=== PATIENT | female | born 1950 | race Caucasian/White ===

== ENCOUNTER 2017-10-17 18:25 | Inpatient (IN) | payer MEDICARE ==
[2017-10-17 19:09] LABS: Mean Corpuscular HGB CONC 34.1 g/dL (32.0-36.0); Mean Corpuscular Hemoglobin 35.9 pg (27.0-31.0); Mean Platelet Volume 6.7 fL (7.4-10.4); Platelet Count 300 thou/uL (130-400); RBC Distribution Width 10.8 % (11.5-14.5); Red Blood Cell (RBC) Count 4.48 mill/uL (4.20-5.40); White Blood Cell (WBC) Count 8.2 thou/uL (4.8-10.8)
[2017-10-17 19:23] LABS: ALT (SGPT) 12 U/L (8-55); AST (SGOT) 20 U/L (5-34); Albumin 4.6 g/dL (3.4-4.8); Alkaline Phosphatase 84 U/L (40-150); Anion Gap 14 mmol/L (10-20); BUN (Urea Nitrogen) 13 mg/dL (9.8-20.1); Bilirubin, Total 0.5 mg/dL (0.2-1.2); CK (CPK) 106 U/L (29-168); Calc. Creatinine Clearance 0 mL/min (70-130); Carbon Dioxide 22 mmol/L (23-31); Chloride 107 mmol/L (98-107); Estimated GFR-MDRD 36; Globulin 3.1 g/dL (2.4-3.5); Glucose 96 mg/dL (80-115); Protein, Total 7.7 g/dL (6.0-8.3); Sodium 139 mmol/L (136-145)
[2017-10-17 19:25] LABS: CKMB 1.9 ng/mL (0-6.6); Troponin I Less than 0.010 ng/mL (< 0.028)
[2017-10-17 19:35] LABS: #Basophils 0.1 thou/uL (0.0-0.2); #Lymphocytes 2.8 thou/uL (1.20-3.40); #Monocytes 0.9 thou/uL (0.11-0.59); #Neutrophils 4.4 thou/uL (1.40-6.50); %Basophils 0.9 % (0.0-1.0); %Eosinophils 0.4 % (0.0-10.0); %Lymphocytes 33.8 % (21.0-51.0); %Monocytes 11.3 % (0.0-10.0); %Neutrophils 53.6 % (42.0-75.0); PLT Morphology Comment Appears Adequate; RBC Morphology Normal
--- NOTE | 2017-10-17 20:30 | RAD ---
PORTABLE AP CHEST X-RAY 10/17/17 HISTORY: Chest pain. COMPARISON: None available. FINDINGS: The cardiac silhouette and pulmonary vasculature are within normal limits. Minimal linear densities a re seen at each lung base which may be related to minimal atelectasis or scarring. Lungs are otherwis e clear. Vascular calcifications seen in the thoracic aorta. There is bilateral glenohumeral osteoart hropathy with degenerative changes in the spine. IMPRESSION: Mild bibasilar atelectasis versus scarring. There is otherwise no acute cardiopulmonary process. POS: [facility] CARL[facility]
[2017-10-17 21:07] LABS: Bilirubin Negative (Negative); Blood, Urine Negative (Negative); Clarity CLEAR (Clear); Glucose, Urine (Dipstick) Negative (Negative); Leukocyte Negative (Negative); Nitrite Negative (Negative); Protein, Urine (Dipstick) Negative (Neg-Trace); Urobilinogen 0.2 mg/dL (0.2-1.0)
[2017-10-17] MEDS ORDERED: Aspirin 325 MG TAB ONE (21:17)
[2017-10-17] MEDS ORDERED: Acetaminophen 1,000 MG in Premix Bag 1 BAG IVPB SCH (21:45)
--- NOTE | 2017-10-17 22:27 | CT ---
CT HEAD WITHOUT IV CONTRAST 10/17/17 HISTORY: Right arm, leg and face numbness. Chest pain. Nausea. COMPARISON: None available. FINDINGS: There is decreased attenuation seen in the periventricular white matter which is nonspecific but like ly reflective of moderate chronic small vessel ischemic changes. There is no evidence of an acute cor tical infarction, hemorrhage, mass effect, or midline shift. There are stents seen within the interna l carotid arteries at the level of the carotid siphons with coil masses seen adjacent to the region o f the sella likely related to prior aneurysm coiling. This does result in significant spray artifact limiting evaluation of the brain parenchyma in the region of the spray artifact. There is no acute cortical infarction, hemorrhage, mass effect, or midline shift. Ventricular system is normal in size, shape and position. The visualized paranasal sinuses and mastoid air cells are linh ar. Calvarial structures are intact. IMPRESSION: 1. No acute intracranial abnormality is demonstrated. 2. Chronic small vessel ischemic changes. 3. Findings related to prior aneurysm coiling as described above. POS: JUAN CARLOS
[2017-10-17 22:43] LABS: Troponin I 0.011 ng/mL (< 0.028)
[2017-10-17] MEDS ORDERED: Acetaminophen 325 MG TAB PO PRN (22:55)
[2017-10-17] MEDS ORDERED: Ondansetron HCl/PF 4 MG/2 ML Vial IVP PRN ×2 (22:55→23:58)
[2017-10-17] MEDS ORDERED: Ondansetron ODT 4 MG TAB SL PRN (22:55)
[2017-10-17 23:37] VITALS: BMI 20.5
[2017-10-17] MEDS ORDERED: Senokot 8.6 MG TAB PO PRN (23:58)
[2017-10-17] MEDS ORDERED: Mag-Al 1200 mg/1200 mg/30 ML UDCUP PO PRN (23:58)
[2017-10-17] MEDS ORDERED: Loperamide HCl 2 MG CAP PO PRN (23:58)
[2017-10-17] MEDS ORDERED: Milk Of Magnesia 30 ML UDCUP PO PRN (23:58)
[2017-10-17] MEDS ORDERED: Cyclobenzaprine 10 MG TAB PO PRN (23:59)
[2017-10-17] MEDS ORDERED: diphenhydrAMINE 25 MG CAP PO PRN (23:59)
[2017-10-17] MEDS ORDERED: Non-Formulary Item 1 EACH (Naproxen Sodium [Aleve] 220 MG) PO PRN (23:59)
[2017-10-17] MEDS ORDERED: Docusate 100 MG CAP PO PRN (23:59)
[2017-10-18 03:03] LABS: Troponin I 0.013 ng/mL (< 0.028)
--- NOTE | 2017-10-18 03:32 | HP ---
PRIMARY CARE PHYSICIAN: [facility] call admission. DATE OF SERVICE: 10/17/2017 REASON FOR ADMISSION: Stroke-like symptoms, chest pain. HISTORY OF PRESENT ILLNESS: A 67-year-old female who presented to emergency room with complaint of c hest pain. She was also having at the same time paraesthesia on right upper and lower extremity as w ell as on the right face. Patient denies any motor weakness. She was having substernal chest pain, which was like in intensity, pressure-like in nature, as well as 2/10 in intensity without any radiat ion, associated with nausea, but no vomiting. The patient does have chronic cough. She denies any h emoptysis. She denies any calf tenderness. She denies any pleuritic chest pain. She denies any low er extremity edema, orthopnea, or PND. She denies any palpitation, dizziness. She denies any dyspne a on exertion. She does report headache. In the emergency room, this patient had a CT brain, which was unremarkable. Chest x-ray was also unr emarkable. CT brain only showed chronic small vessel ischemic changes. The patient does have prior history of aneurysm coiling. Her chest x-ray showed bibasilar atelectasis versus scaring. Routine b lood test was unremarkable other than macrocytosis. REVIEW OF SYSTEMS: Please see my HPI for pertinent positive and negative. All other review of syste ms reviewed and negative except as mentioned in the HPI. Constitutional: Weight loss or gain, ability to conduct usual activities. Skin: Rash, itching. Eyes: Double vision, pain. ENT/Mouth: Nose bleeding, neck stiffness, pain, tenderness. Cardiovascular: Palpitations, dyspnea on exertion, orthopnea. Respiratory: Shortness of breath, wheezing, cough, hemoptysis, fever or night sweats. Gastrointestinal: Poor appetite, abdominal pain, heartburn, nausea, vomiting, constipation, or diarr hea. Genitourinary: Urgency, frequency, dysuria, nocturia. Musculoskeletal: Pain, swelling. Neurologic/Psychiatric: Anxiety, depression. Allergy/Immunologic: Skin rash, bleeding tendency. EMERGENCY ROOM COURSE: The patient is given 3 nitroglycerin and aspirin 324 mg at other emergency ro om. In our hospital, the patient was given Ofirmev 1 gram. ALLERGIES: AMOXICILLIN, NORCO, WELLBUTRIN. CURRENT HOME MEDICATIONS: Synthroid 75 mcg p.o. daily, ranitidine 150 mg twice daily, Lovaza 1 gram 4 times daily, lamotrigine 100 mg 2 tablets twice daily, Lipitor 20 mg p.o. daily, Antivert 25 mg as needed, Tylenol No. 3 one tablet as needed, Flexeril 10 mg t.i.d. p.r.n., trazodone 50 mg 2 tablets p .o. at bedtime p.r.n., losartan 300 mg p.o. daily. PAST MEDICAL HISTORY: COPD, hypothyroidism, dyslipidemia, bipolar disorder, chronic low back pain, m acular degeneration, left kidney cyst, history of skull fracture, osteoporosis. PAST SURGICAL HISTORY: x2, right tubal removal, right hand ganglion removal, sebaceous cys t removal from left foot bilateral meniscal repair, appendicectomy, oophorectomy of the right ovary, splenectomy, tonsillectomy. PAST PSYCHIATRIC HISTORY: Anxiety, depression, bipolar disorder. SOCIAL HISTORY: The patient is smoking about half pack per day. She drinks alcohol socially. She d enies any other illicit drug abuse. FAMILY HISTORY: Positive for diabetes among several family members. One of her brothers with lung c ancer, multiple myeloma in one family member. PHYSICAL EXAMINATION: VITAL SIGNS: On arrival, blood pressure 137/84, pulse 83, respiratory rate 22, temperature 98.5, sat uration 94% on room air, weight 54.4 kilograms. GENERAL: The patient is currently alert, awake, obvious acute distress. HEENT: Normocephalic, atraumatic. Eyes: Pupils round, reactive to light. Extraocular muscle intac t. ENT: Oropharynx within normal limits. Moist mucous membrane, no oral lesion, no pharyngeal erythema , no exudate. NECK: Supple, no JVD, no thyromegaly, no carotid bruit, no jugular venous distention. LUNGS: Clear to auscultation without any rhonchi or rales. CARDIAC: S1, S2 appears regular without any murmur. ABDOMEN: Soft and benign without any tenderness, no peritoneal sign, no guarding, no rigidity, no re bound, no suprapubic tenderness. BACK: Unremarkable, no CVA tenderness. EXTREMITIES: Upper extremity passive movement of all joints are normal. Lower extremities: No lucy a. Good peripheral pulsation. SKIN: No skin rash. HEMATOLOGIC: No lymphadenopathy. PSYCHIATRIC: Normal affect. NEUROLOGIC: The patient does have reduced sensation on right upper and lower extremity as well as ri ght face. Motor power is 5/5 in all four limbs. No cerebellar sign. Plantar bilateral flexor. PSYCHIATRIC: Normal affect. HEMATOLOGIC: No lymphadenopathy. SIGNIFICANT LABORATORY: 1. EKG showing sinus rhythm, first degree AV block, left atrial enlargement. 2. CT brain based on my review, no acute intracranial process. Chest x-ray based on my review, no a cute cardiopulmonary process. CBC: WBC 8.2, hemoglobin 16.0, MCV 105, platelet 300. BMP shows sodi um 139, potassium 4.0, chloride 107, carbon dioxide 22, BUN 13, creatinine 1.44, glucose 96, calcium 10.0. LFT: AST 20, ALT 12, alkaline phosphatase 84. CK 106. CK-MB 1.9, troponin I less than 0.010 . Albumin 4.6, protein 7.7. BNP 56.4. Urinalysis normal. ASSESSMENT/PLAN AND PLAN: 1. Acute right upper and lower extremity as well as facial paraesthesia, rule out cerebrovascular ac cident. 2. Chest pain, rule out acute coronary syndrome. 3. Macrocytosis without any anemia. 4. Chronic kidney disease stage 3. 5. Hypothyroidism. 6. Gastroesophageal reflux disease. 7. Hypertension. 8. Anxiety and depression. 9. Dyslipidemia. 10. Chronic low back pain. PLAN: 1. Admission to stroke floor, neuro check, MRI brain. If MRI brain is unremarkable, then we will co nsider cardiac workup as well. Do serial cardiac enzymes x3 after restart patient's home medication check folate and B12 level in the morning. 2. DVT prophylaxis with Lovenox 40 mg subcutaneously daily. 3. Gastrointestinal prophylaxis with the Pepcid 20 mg p.o. b.i.d. 4. Code status: The patient is FULL CODE. The patient does not have any surrogate decision maker. Disposition plan based on clinical course. We are expecting patient's stay in hospital more than 48 hours. Plan of care discussed with the patient in detail.
[2017-10-18] MEDS: Acetaminophen/Codeine 30-300mg Tablet PO PRN ×2 (05:55→14:18)
[2017-10-18] MEDS: Ibuprofen 200 MG TAB PO PRN ×2 (05:56→16:12)
[2017-10-18] MEDS: Levothyroxine Sodium 75 MCG TAB PO SCH (05:56)
[2017-10-18 07:20] LABS: #Basophils 0.1 thou/uL (0.0-0.2); #Lymphocytes 2.6 thou/uL (1.20-3.40); #Monocytes 0.8 thou/uL (0.11-0.59); #Neutrophils 3.7 thou/uL (1.40-6.50); %Basophils 1.4 % (0.0-1.0); %Eosinophils 0.3 % (0.0-10.0); %Lymphocytes 35.4 % (21.0-51.0); %Neutrophils 51.8 % (42.0-75.0); Hemoglobin 14.2 g/dL (12.0-16.0); Mean Corpuscular HGB CONC 33.9 g/dL (32.0-36.0); Mean Corpuscular Hemoglobin 35.4 pg (27.0-31.0); Mean Platelet Volume 6.9 fL (7.4-10.4); Platelet Count 277 thou/uL (130-400); RBC Distribution Width 10.6 % (11.5-14.5); Red Blood Cell (RBC) Count 4.02 mill/uL (4.20-5.40); White Blood Cell (WBC) Count 7.2 thou/uL (4.8-10.8)
[2017-10-18 07:42] LABS: Anion Gap 14 mmol/L (10-20); BUN (Urea Nitrogen) 17 mg/dL (9.8-20.1); Calc. Creatinine Clearance 31 mL/min (70-130); Calcium 9.4 mg/dL (7.8-10.44); Carbon Dioxide 24 mmol/L (23-31); Chloride 106 mmol/L (98-107); Estimated GFR-MDRD 36; Glucose 131 mg/dL (80-115); Potassium 3.8 mmol/L (3.5-5.1); Sodium 140 mmol/L (136-145)
[2017-10-18] MEDS: Enoxaparin Sodium 40 MG/0.4 ML SYRINGE SC SCH (08:15)
[2017-10-18] MEDS: Magnesium Oxide 250 MG TAB PO SCH (08:17)
[2017-10-18] MEDS: Vit A,C & E/Lutein/Minerals Tablet PO SCH ×2 (08:17→21:03)
[2017-10-18] MEDS: Ubidecarenone 50 MG CAP PO SCH (08:18)
[2017-10-18] MEDS: Folic Acid/Vit B Comp W-C PO SCH (08:19)
[2017-10-18] MEDS: Losartan 25 MG TAB PO SCH ×2 (08:20→21:03)
[2017-10-18] MEDS: Ferrous Sulfate 325 MG TAB PO SCH (08:22)
[2017-10-18] MEDS: Atorvastatin Calcium 20 MG TAB PO SCH (08:22)
[2017-10-18] MEDS: Famotidine 20 MG TAB PO SCH (08:23)
[2017-10-18] MEDS: lamoTRIgine 100 MG TAB PO SCH ×2 (08:24→21:04)
[2017-10-18 08:32] LABS: Vitamin B12 Greater than 2000 pg/mL (211-911)
[2017-10-18] MEDS ORDERED: Cyanocobalamin (Vitamin B-12) 1,000 MCG TAB PO SCH (09:00)
--- NOTE | 2017-10-18 12:23 | MRI ---
MRI BRAIN NONCONTRAST: DATE: 10/18/17. HISTORY: A 67-year-old female with acute right upper extremity, right lower extremity, and right facial hypest hesia (numbness). COMPARISON: No prior brain MRIs. There is a CT of the brain of 10/17/17. FINDINGS: There are non-ferromagnetic aneurysm coils in the region of the bilateral supraclinoid internal carot id arteries. They produce mild magnetic susceptibility artifact only on the gradient echo axial sequ ence. There is a small focus of encephalomalacia and gliosis in the right upper parietal cortex, inc luding involvement of the right paracentral lobule, near the vertex of the head, consistent with an o ld infarction. There are moderate chronic ischemic white matter changes throughout the cerebrum and shannan. No restricted diffusion to indicate acute infarction. No evidence of recent or remote intraax ial hemorrhage. No mass effect, midline shift, or extraaxial fluid collection. IMPRESSION: 1. No acute intracranial findings. 2. 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 3. Diffuse moderate chronic ischemic white matter changes of the cerebrum and shannan. 4. 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 SULMA Maynard POS: JUAN CARLOS
--- NOTE | 2017-10-18 15:37 | EKG ---
Test Reason : Blood Pressure : / mmHG Vent. Rate : 084 BPM Atrial Rate : 084 BPM P-R Int : 216 ms QRS Dur : 062 ms QT Int : 356 ms P-R-T Axes : 065 025 066 degrees QTc Int : 420 ms Sinus rhythm with 1st degree A-V block Left atrial enlargement Septal infarct , age undetermined Abnormal ECG Confirmed by DEYVI BEACH, IVELISSE Frank ([id number]), clinical editor WILLIAM HENLEY ([id number]) on 10/18/2017 3:37:45 PM Referred By: Confirmed By:IVELISSE CARNES MD
--- NOTE | 2017-10-18 17:49 | PDOC.PN ---
- Subjective Encounter Start Date: 10/18/17 Encounter Start Time: 15:00 Patient seen and examined. Still has Rt arm/leg paresthesias. No overnight events. No new focal deficits. - Objective Resuscitation Status: Resuscitation Status FULL:Full Resuscitation MAR Reviewed: Yes Vital Signs & Weight: Vital Signs (12 hours) Temp Pulse Resp BP Pulse Ox 10/18/17 16:00 98.0 F 74 14 115/58 L 92 L 10/18/17 12:00 98.8 F 70 14 117/55 L 96 10/18/17 08:24 97.6 F 70 16 93 L 10/18/17 08:00 97.6 F 70 16 119/68 93 L Weight Weight 115 lb 11.2 oz I&O: 10/17/17 10/18/17 10/19/17 06:59 06:59 06:59 Intake Total 480 Balance 480 Result Diagrams: 10/18/17 06:50 10/18/17 06:50 EKG Reviewed by me: Yes (Tele SR) Phys Exam - Physical Examination Constitutional: NAD HEENT: sclera anicteric Neck: no nodes, no JVD Respiratory: no wheezing, no rales, no rhonchi, clear to auscultation bilateral Cardiovascular: RRR, no rub no heaves/pulsations Gastrointestinal: soft, non-tender, no distention, positive bowel sounds Musculoskeletal: no edema Neurological: non-focal, moves all 4 limbs Rt forearm/leg decreased sensations Psychiatric: normal affect, A&O x 3 Skin: no rash Dx/Plan - Plan DVT proph w/lovenox, DVT proph w/SCDs IMPRESSION: 1. Suspected small vessel CVA causing Rt arm/leg paresthesias. MRI brain negative 2. Chest pain - resolved 3. Hypothyroidism 4. HLD 5. Chronic back pain 6. CKD 3 / HTN / Anxiety-Depression PLAN: * Cont Aspirin * DC Vit B12 due to elevated levels * Chest pain w/u as outpt * Echo * Carotid * Stroke team * Neuro consult * Cont neurochecks Review of Systems - Review of Systems Respiratory: negative: Cough, Dry, Shortness of Breath, Hemoptysis, SOB with Excertion, Pleuritic Pain, Sputum, Wheezing Cardiovascular: negative: chest pain, palpitations, orthopnea, paroxysmal nocturnal dyspnea, edema, light headedness Gastrointestinal: negative: Nausea, Vomiting, Abdominal Pain, Diarrhea, Constipation, Melena, Hematochezia - Medications/Allergies Allergies/Adverse Reactions: Allergies Allergy/AdvReac Type Severity Reaction Status Date / Time amoxicillin Allergy Verified 10/17/17 23:08 amoxicillin trihydrate Allergy Verified 10/17/17 23:08 [From Amoxil] ampicillin Allergy Verified 10/17/17 23:08 bupropion HCl Allergy Verified 10/17/17 23:08 [From Wellbutrin] hydrocodone bitartrate Allergy Verified 10/17/17 23:08 [From [place]] methocarbamol [From Robaxin] Allergy Verified 10/17/17 23:08 Aogfslg-Okn-Wst Reductase Allergy Verified 10/18/17 00:27 Inhibitor Medications: Current Medications Acetaminophen/Codeine Phosphate (Tylenol #3) 1 tab PO Q6H PRN PRN Reason: Pain Last Admin: 10/18/17 14:18 Dose: 1 tab Al Hydroxide/Mg Hydroxide (Maalox) 30 ml PO Q6H PRN PRN Reason: Heartburn or Indigestion Aspirin (Ecotrin) 325 mg PO DAILY [facility] Atorvastatin Calcium (Lipitor) 20 mg PO DAILY [facility] Last Admin: 10/18/17 08:22 Dose: 20 mg Calcium Carbonate (Caltrate) 600 mg PO [facility] Cholecalciferol (Vitamin D3) 2,000 units PO DAILY [facility] Last Admin: 10/18/17 08:20 Dose: 2,000 units Coenzyme Q10 (Coenzyme Q10) 200 mg PO DAILY [facility] Last Admin: 10/18/17 08:18 Dose: 200 mg Cyclobenzaprine HCl (Flexeril) 10 mg PO TIDPRN PRN PRN Reason: Muscle Spasm Last Admin: 10/18/17 16:13 Dose: 10 mg Diphenhydramine HCl (Benadryl) 50 mg PO HSPRN PRN PRN Reason: Allergies Docusate Sodium (Colace) 100 mg PO DAILYPRN PRN PRN Reason: Constipation Enoxaparin Sodium (Lovenox) 40 mg SC 0900 [facility] Last Admin: 10/18/17 08:15 Dose: 40 mg Famotidine (Pepcid) 20 mg PO DAILY [facility] Last Admin: 10/18/17 08:23 Dose: 20 mg Ferrous Sulfate (Feosol) 325 mg [facility] Last Admin: 10/18/17 08:22 Dose: 325 mg Ibuprofen (Motrin) 200 mg PO Q4H PRN PRN Reason: Fever>101/(Mi/Mod/Sev) Pain Last Admin: 10/18/17 16:12 Dose: 200 mg Lamotrigine (Lamictal) 200 mg PO BID [facility] Last Admin: 10/18/17 08:24 Dose: 200 mg Levothyroxine Sodium (Synthroid) 75 mcg PO 0600 [facility] Last Admin: 10/18/17 05:56 Dose: 75 mcg Loperamide HCl (Imodium) 2 mg PO PRN PRN PRN Reason: Diarrhea/Loose Stools Losartan Potassium (Cozaar) 50 mg PO BID [facility] Last Admin: 10/18/17 08:20 Dose: 50 mg Magnesium Hydroxide (Milk Of Magnesium) 30 ml PO DAILYPRN PRN PRN Reason: Constipation Magnesium Oxide (Magnesium Oxide) 500 mg PO DAILY [facility] Last Admin: 10/18/17 08:17 Dose: 500 mg Multivitamins/Minerals (Ocuvite With Lutein) 1 tab PO BID [facility] Last Admin: 10/18/17 08:17 Dose: 1 tab Ondansetron HCl (Zofran) 4 mg IVP Q6H PRN PRN Reason: Nausea/Vomiting Last Admin: 10/18/17 06:15 Dose: 4 mg Senna (Senokot) 2 tab PO HSPRN PRN PRN Reason: Constipation Trazodone HCl (Desyrel) 100 mg PO [facility] Vitamin B Complex/Vit C/Folic Acid (Nephro-Noah Tablet) 1 tab PO DAILY [facility] Last Admin: 10/18/17 08:19 Dose: 1 tab
--- NOTE | 2017-10-18 19:07 | ULT ---
CAROTID DOPPLER ULTRASOUND 10/18/17 HISTORY: CVA. FINDINGS: There is calcified atherosclerotic plaque seen within the bilateral carotid bulbs and proximal international banker al carotid arteries. Findings are greater on the left. There is moderate (50-69%) stenosis involving the left internal carotid artery based on a peak systol ic velocity of 155.4 cm/s. The left ICA/CCA ratio is 1.92. There is less than 50% maximal stenosis in the right internal carotid artery based on a peak systolic velocity of 87.3 cm/s and an ICA/CCA ratio of 1.1. Antegrade flow is demonstrated in the vertebral a rteries bilaterally. There is a hypoechoic structure seen adjacent to the carotid artery in the right aspect of the neck w hich demonstrates area of increased echogenicity centrally likely related to a lymph node. This lymp h node measures 1.5 cm x 1.1 cm x 0.8 cm. This lymph node is overall nonspecific IMPRESSION: 1. Moderate (50-69%) stenosis involving the left internal carotid artery. 2. No hemodynamically significant stenosis involving the right internal carotid artery. 3. Nonspecific mildly prominent lymph node right neck. POS: [facility]
[2017-10-18] MEDS: traZODone HCl 50 MG TAB PO SCH (21:03)
[2017-10-18] MEDS: Calcium Carbonate 600 MG TAB PO SCH (21:03)
[2017-10-19] MEDS: Levothyroxine Sodium 75 MCG TAB PO SCH (05:38)
[2017-10-19 06:03] LABS: Cardiac Risk 2.6 (Less than 4.5)
[2017-10-19] MEDS: Enoxaparin Sodium 40 MG/0.4 ML SYRINGE SC SCH (10:52)
[2017-10-19] MEDS: Famotidine 20 MG TAB PO SCH (10:53)
[2017-10-19] MEDS: Losartan 25 MG TAB PO SCH ×2 (10:53→21:48)
[2017-10-19] MEDS: lamoTRIgine 100 MG TAB PO SCH ×2 (10:54→21:47)
[2017-10-19] MEDS: Atorvastatin Calcium 20 MG TAB PO SCH (10:54)
[2017-10-19] MEDS: Aspirin 325 mg Enteric Coated Tablet PO SCH (10:54)
[2017-10-19] MEDS: Folic Acid/Vit B Comp W-C PO SCH (10:54)
[2017-10-19] MEDS: Vit A,C & E/Lutein/Minerals Tablet PO SCH ×2 (10:54→21:48)
[2017-10-19] MEDS: Ferrous Sulfate 325 MG TAB PO SCH (10:54)
[2017-10-19] MEDS: Magnesium Oxide 250 MG TAB PO SCH (10:54)
[2017-10-19] MEDS: Ubidecarenone 50 MG CAP PO SCH (10:55)
--- NOTE | 2017-10-19 14:31 | PDOC.PN ---
- Subjective Encounter Start Date: 10/19/17 Encounter Start Time: 14:29 Ms. Alanis says she continues to have numbness in her right arm, all the way to her finger tips. she also notes a patch of numbness on the right side of her face, as well as a patch on her right calf. She says the pain in her chest has abated. - Objective Resuscitation Status: Resuscitation Status FULL:Full Resuscitation MAR Reviewed: Yes Vital Signs & Weight: Vital Signs (12 hours) Temp Pulse Pulse Pulse Resp BP BP 10/19/17 12:00 97.8 F 72 16 10/19/17 09:50 73 82 125/77 139/77 10/19/17 08:00 98.1 F 73 16 10/19/17 04:15 10/19/17 04:00 97.9 F 61 16 BP Pulse Ox 10/19/17 12:00 137/73 96 10/19/17 09:50 10/19/17 08:00 116/61 94 L 10/19/17 04:15 96 10/19/17 04:00 115/55 L 96 Weight Weight 125 lb I&O: 10/18/17 10/19/17 10/20/17 06:59 06:59 06:59 Intake Total 480 360 Balance 480 360 Result Diagrams: 10/18/17 06:50 10/18/17 06:50 Phys Exam - Physical Examination HEENT: PERRLA Respiratory: no wheezing, no rales, no rhonchi, clear to auscultation bilateral Cardiovascular: RRR, no significant murmur, no rub Gastrointestinal: soft, non-tender, positive bowel sounds Musculoskeletal: no edema Dx/Plan (1) Right arm numbness Code(s): R20.2 - PARESTHESIA OF SKIN Status: Acute (2) Tobacco abuse Code(s): Z72.0 - TOBACCO USE Status: Acute (3) Chest pain Code(s): R07.9 - CHEST PAIN, UNSPECIFIED Status: Acute (4) CKD (chronic kidney disease), stage III Code(s): N18.3 - CHRONIC KIDNEY DISEASE, STAGE 3 (MODERATE) Status: Acute (5) Hypertension Code(s): I10 - ESSENTIAL (PRIMARY) HYPERTENSION Status: Acute - Plan * Right upper extremity numbness- MRI of the brain was negative for new infarct - ? cervical Disc disease- await Neurology input * Carotid doppler results were noted- she had an increase in the velocities in the left carotid indicating moderate stenosis, however it is less than 70%, and her renal function demonstrates a GFR of only 38% - will therefore hold off on obtaining a CTA of the carotids, unless this is recommended by Neurology * CKD- discussed with patient- will need to avoid nephrotoxic agents * Tobacco Abuse- discussed smoking cessation * Chest pain- likely non-cardiac- but will proceed with a Stress test.
--- NOTE | 2017-10-19 21:46 | CON ---
DATE OF CONSULTATION: 10/19/2017 REFERRING PROVIDER: Dr. Raymundo Will. REASON FOR CONSULTATION: Right-sided paresthesia. HISTORY OF PRESENT ILLNESS: Ms. Alanis is a pleasant 67-year-old female, who has been consu lted for evaluation of right-sided paresthesia. The patient reports that she woke up yesterday raz alvarado with numbness and tingling on the right side of the face, arm and leg. A few minutes later, she d eveloped a bifrontal headache which was dull to throbbing in quality, severe intensity with some christiano iness and blurred vision. She also developed chest pain, which prompted her to present to the [facility] Emergency Room. She states that her headache and chest pain are improved; however, she continue s to feel tingling sensation on the right face, arm and leg as well as fogginess. She denies chest p ain, palpitation, lightheadedness, dizziness, neck pain or back pain. PAST MEDICAL HISTORY: Significant for COPD, hypothyroidism, hyperlipidemia, bipolar disorder, chroni c low back pain, macular degeneration, left kidney cyst, history of skull fracture and osteoporosis. PAST SURGICAL HISTORY: Significant for x2, right tubal removal, right hand ganglion remova l, sebaceous cyst removal, appendectomy, oophorectomy, splenectomy, and tonsillectomy. PAST PSYCHIATRIC HISTORY: Significant for anxiety, depression, bipolar disorder. SOCIAL HISTORY: She smokes half a pack per day. She denies illicit drug use. She drinks alcohol on occasions. FAMILY HISTORY: Significant for diabetes and one of her brothers with a history of lung cancer. REVIEW OF SYSTEMS: As mentioned above in the HPI, otherwise negative. PHYSICAL EXAMINATION: VITAL SIGNS: Blood pressure of 137/73, pulse of 72, temperature of 97.8, respirations of 16, O2 sats of 96% on room air. GENERAL: Well-developed, well-nourished female, in no apparent distress. RESPIRATORY: Clear to auscultation bilaterally. CARDIOVASCULAR: Regular rate and rhythm. NEUROLOGICAL: Mental status: The patient is awake, alert, oriented x3. Speech and language: Fluen t speech. Cranial nerves: Pupils are 3 mm and reactive. Visual gaspar are intact. External muscle s are intact. No nystagmus is noted. Face is symmetric. Tongue and uvula are midline. Motor exam showed normal tone and bulk with a 5/5 strength in both upper and lower extremities. Sensory: Sensa tion is intact and symmetric. Deep tendon reflexes: 2+ reflexes in both upper and lower extremities . Babinski: Plantar responses flexion bilaterally. Coordination: Intact to [id number] and finger tapping bilaterally. LABORATORY DATA: Reviewed, which included CBC, CMP, urinalysis, which is significant for creatinine of 1.46, glucose of 131, total cholesterol of 101, LDL of 28, HDL of 39, triglycerides of 170, otherw ise unremarkable. IMAGING STUDIES: MRI brain without contrast was reviewed, which showed no acute intracranial abnorma lity. Carotid Doppler results were reviewed, which showed 50% to 69% stenosis of the left ICA. IMPRESSION: 1. Right-sided paresthesia. 2. Migraine headache. 3. Left internal carotid artery stenosis. ASSESSMENT AND PLAN: Ms. Alanis is a pleasant 67-year-old female presented with the right-s ided paresthesia followed by headache. Based on her description, she likely had a migraine with aura . I have reviewed her MRI brain, which showed no acute intracranial abnormality. Her carotid Dopple rs does show 50% to 69% stenosis of the left ICA. I would recommend [facility]. Unfortunately, she cannot have a CT angiogram due to her low GFR and elev ated creatinine level. I would recommend continuing her on aspirin 325 mg daily for secondary stroke prevention. If MRI angiogram is negative, she is okay to be discharged to home.
[2017-10-19] MEDS: Calcium Carbonate 600 MG TAB PO SCH (21:47)
[2017-10-19] MEDS: traZODone HCl 50 MG TAB PO SCH (21:48)
[2017-10-20] MEDS: Levothyroxine Sodium 75 MCG TAB PO SCH (02:53)
[2017-10-20] MEDS: Losartan 25 MG TAB PO SCH (08:18)
[2017-10-20] MEDS: Magnesium Oxide 250 MG TAB PO SCH (08:18)
[2017-10-20] MEDS: Folic Acid/Vit B Comp W-C PO SCH (08:18)
[2017-10-20] MEDS: Vit A,C & E/Lutein/Minerals Tablet PO SCH (08:18)
[2017-10-20] MEDS: lamoTRIgine 100 MG TAB PO SCH (08:19)
[2017-10-20] MEDS: Famotidine 20 MG TAB PO SCH (08:19)
[2017-10-20] MEDS: Aspirin 325 mg Enteric Coated Tablet PO SCH (08:19)
[2017-10-20] MEDS: Ubidecarenone 50 MG CAP PO SCH (08:19)
[2017-10-20] MEDS: Ferrous Sulfate 325 MG TAB PO SCH (08:19)
[2017-10-20] MEDS: Atorvastatin Calcium 20 MG TAB PO SCH (08:19)
[2017-10-20] MEDS: Enoxaparin Sodium 40 MG/0.4 ML SYRINGE SC SCH (08:24)
--- NOTE | 2017-10-20 13:55 | NM ---
MYOCARDIAL PERFUSION SCAN: HISTORY: Chest pain. TECHNIQUE: The patient was given 9 mCi of technetium sestamibi for rest imaging and 33 mCi for stress imaging. P atient was stressed with exercise according to Nash protocol. Left ventricle was imaged with SPECT i maging, with CT attenuation correction imagines obtained. FINDINGS: Normal activity throughout the left ventricle seen on stress and rest images. No evidence of reversib le ischemia. Wall motion is normal. Ejection fraction is recorded at 66%. IMPRESSION: No evidence of reversible ischemia. POS: [facility]AN CARLOS
--- NOTE | 2017-10-20 15:42 | MRI ---
MR ANGIOGRAM OF THE NECK: Date: 10/20/17 HISTORY: Abnormal carotid Doppler. COMPARISON: None. CORRELATION: Carotid ultrasound dated 10/18/17. TECHNIQUE: Axial 2D and 3D [id number] imaging performed. Maximum intensity projection images are submitted f or interpretation. FINDINGS: There is symmetric and appropriate flow-related signal in the visualized cervical carotid and vertebr al arteries. No significant stenosis. Note, the origin of the great vessels of the neck, as well as t he aortic arch, are not included on this exam. The images are somewhat limited due to stacking artifact from motion. IMPRESSION: Unremarkable MR angiogram of the neck. No evidence of moderate stenosis in the visualized left partner marketing intern al carotid artery. POS: [facility]
[2017-10-20 16:53] VITALS: BP 126/82; TEMP 98
--- NOTE | 2017-10-20 16:55 | PDOC.PN ---
- Subjective Encounter Start Date: 10/20/17 Encounter Start Time: 16:53 Ms. Alains was seen today in follow-up. She does not have any specific complaints today. - Objective Resuscitation Status: Resuscitation Status FULL:Full Resuscitation MAR Reviewed: Yes Vital Signs & Weight: Vital Signs (12 hours) Temp Pulse Pulse Pulse Resp BP BP 10/20/17 12:00 96.3 F L 79 16 10/20/17 08:00 98.2 F 70 16 10/20/17 07:52 70 69 121/67 132/66 10/20/17 05:27 BP Pulse Ox 10/20/17 12:00 150/86 H 95 10/20/17 08:00 121/67 99 10/20/17 07:52 10/20/17 05:27 92 L Weight Weight 125 lb I&O: 10/19/17 10/20/17 10/21/17 06:59 06:59 06:59 Intake Total 360 480 Balance 360 480 Result Diagrams: 10/18/17 06:50 10/18/17 06:50 Phys Exam - Physical Examination HEENT: PERRLA Respiratory: no wheezing, no rales, no rhonchi, clear to auscultation bilateral Cardiovascular: RRR, no significant murmur Gastrointestinal: soft, non-tender, positive bowel sounds Musculoskeletal: no edema Dx/Plan (1) Right arm numbness Code(s): R20.2 - PARESTHESIA OF SKIN Status: Acute (2) Tobacco abuse Code(s): Z72.0 - TOBACCO USE Status: Acute (3) Chest pain Code(s): R07.9 - CHEST PAIN, UNSPECIFIED Status: Acute (4) CKD (chronic kidney disease), stage III Code(s): N18.3 - CHRONIC KIDNEY DISEASE, STAGE 3 (MODERATE) Status: Acute (5) Hypertension Code(s): I10 - ESSENTIAL (PRIMARY) HYPERTENSION Status: Acute - Plan * MRA is negative, as well as the stress test. * She is stable for discharge Home * Possible Migraine with Aura
--- NOTE | 2017-10-21 05:53 | DIS ---
DATE OF ADMISSION: 10/17/2017 DATE OF DISCHARGE: 10/20/2017 PRIMARY CARE PHYSICIAN: Does not have primary care physician. DISCHARGE DISPOSITION: Home. PRIMARY DISCHARGE DIAGNOSES: 1. Probable migraine with aura. 2. Chronic obstructive pulmonary disease. 3. Hypothyroidism. 4. Bipolar disorder. 5. History of chronic low back pain. 6. History of macular degeneration. DISCHARGE MEDICATIONS: Include Tylenol No.3 q.6 hours as needed, atorvastatin 20 mg daily, vitamin B complex once daily, calcium carbonate 600 mg daily, vitamin D 2000 units daily, vitamin B12 of 5000 mcg daily, Flexeril 10 mg t.i.d. as needed, Benadryl 50 mg at bedtime, docusate sodium 100 mg as need ed, iron sulfate 65 mg daily, ibuprofen 600 mg q.4 hours as needed, Lamictal 200 mg twice a day, levo thyroxine 75 mcg daily, losartan 50 mg twice a daily, magnesium oxide 500 mg daily, Aleve 220 mg twic e a day as needed, potassium gluconate 600 mg daily, Ranitidine 150 mg twice a day, trazodone 100 mg at bedtime, CoQ10 200 mg daily, vitamin A, C, and E, zinc and copper 1 tablet twice a day. PROCEDURES DONE DURING THE ADMISSION: The patient had an echocardiogram, which showed an ejection fr action was 60-65%. There was normal right ventricular size and function and no significant valvular disease. The patient had bilateral carotid Dopplers in which there was some moderate stenosis involv ing the left internal carotid artery, but no hemodynamically significant stenosis in the right internal sales al carotid. The patient had an MRI of the brain showing no acute intracranial findings. There was s mall old cortical infarct in the right upper parietal lobe and some diffuse chronic ischemic white ma tter changes in the cerebrum in the shannan. There are aneurysm coils in the bilateral supraclinoid car otid siphons. The patient had a nuclear stress test, which was negative for any reversible ischemia and also an MR angiogram of the neck in which there was no evidence of any stenosis in eitber interna l carotid. CODE STATUS: FULL CODE. ALLERGIES: AMOXICILLIN, AMPICILLIN, BUPROPION, HYDROCODONE, METHOCARBAMOL, STATINS. CONSULTANTS DURING ADMISSION: The patient was seen by Dr. Marci Garrison with Neurology. HOSPITAL COURSE: Ms. Alanis is a pleasant 67-year-old female who presented to the emergency room with complaints of numbness and tingling on the right side of her face as well as her right upper extremi ty. Her symptoms persisted over 24 hours, so there was concern that she could have had a stroke desp ite a negative CT scan and MRI of the brain was done which was negative. She had carotid Dopplers wh ich suggested some moderate stenosis in the left internal carotid; however, this was not demonstrated on the MR angiogram. She was seen by Dr. Garrison who felt that her symptoms were most consistent with migraine with aura. She also had complaints of some chest pain and some pain radiating to the left s susan of her chest and shoulder. Nuclear stress test was done for this and this was negative for any r eversible ischemia. There are no findings which would call for a change in medications and therefore no medication changes were made. She was informed of the results of her test and subsequently disch arged home and to have close outpatient followup.
== END 2017-10-20 19:01 | disposition home or self-care (01) | DRG 103 ==
LOC: ERS 18:25 → 2SE 21:30
PROVIDERS: ADMIT Internal Medicine; ATTEND Internal Medicine
DX: G43.109 Migraine with aura, not intractable, without status migrainosus (principal); J44.9 Chronic obstructive pulmonary disease, unspecified; N18.3 Chronic kidney disease, stage 3 (moderate); I65.22 Occlusion and stenosis of left carotid artery; E03.9 Hypothyroidism, unspecified; E78.5 Hyperlipidemia, unspecified; F31.9 Bipolar disorder, unspecified; F41.9 Anxiety disorder, unspecified; M54.5 Low back pain; G89.29 Other chronic pain; M81.0 Age-related osteoporosis without current pathological fracture; F17.210 Nicotine dependence, cigarettes, uncomplicated; I12.9 Hypertensive chronic kidney disease with stage 1 through stage 4 chronic kidney disease, or unspecified chronic kidney disease
CPT/HCPCS: 36415; 70450; 70547; 70551; 71045; 78452; 80048; 80053; 80061; 81003; 82553; 82607; 82746; 83880; 84484; 85025; 93005; 93017; 93306; 93880; 96374; 99406; A9500; G8978-GP-CI; G8979-GP-CI; G8980-GP-CI; G8987-GO-CI; G8988-GO-CI; G8989-GO-CI; J0131; J1650; J2405

== ENCOUNTER 2018-06-04 08:45 | Outpatient (CLI) | payer MEDICARE ==
--- NOTE | 2018-06-04 11:19 | ULT ---
BILATERAL RENAL ULTRASOUND WITH RENAL DOPPLER: Date: 06/04/18 HISTORY: Chronic kidney disease. COMPARISON: None. TECHNIQUE: Rosenbaum scale, color flow, Doppler imaging with spectral waveform analysis performed of the kidneys. FINDINGS: Right renal cortical thinning is noted. No hydronephrosis. Right kidney measures 10.1 x 5.0 x 4.0 cm. There is nodularity of the left renal cortex. Masses could easily be obscured. No hydronephrosis. Lef t kidney measures 8.5 x 4.0 x 4.0 cm. Urinary bladder has a grossly normal mucosal appearance. Renal Doppler: Right renal artery measures 76 cm/sec. Left renal artery measures 126 cm/sec. Aorta is 66 cm/sec Right renal artery:aorta ratio is 1.15. Left renal artery:aorta ratio is 1.90. Right arcuate artery resistive index is 0.57. Left arcuate artery resistive index is 0.58. There is atherosclerosis in the visualized aorta. IMPRESSION: 1. Slightly asymmetric increased velocity of the left renal artery when compared to the contralatera l side. CT angiogram is recommended. 2. Nodularity of the left kidney, nonspecific. If there is concern for left renal mass, further eval uation with MRI or CT is recommended. POS: [facility]
== END 2018-06-04 08:46 | disposition home or self-care (01) ==
LOC: BICULT 08:45
PROVIDERS: ATTEND Internal Medicine Nephrology
DX: I13.10 Hypertensive heart and chronic kidney disease without heart failure, with stage 1 through stage 4 chronic kidney disease, or unspecified chronic kidney disease (principal); N18.4 Chronic kidney disease, stage 4 (severe); N12 Tubulo-interstitial nephritis, not specified as acute or chronic; R80.9 Proteinuria, unspecified; I25.10 Atherosclerotic heart disease of native coronary artery without angina pectoris; I73.9 Peripheral vascular disease, unspecified; E03.9 Hypothyroidism, unspecified; K21.9 Gastro-esophageal reflux disease without esophagitis; M19.90 Unspecified osteoarthritis, unspecified site; J44.9 Chronic obstructive pulmonary disease, unspecified; E78.5 Hyperlipidemia, unspecified; N28.89 Other specified disorders of kidney and ureter
CPT/HCPCS: 36415; 76700; 76770; 80061; 80069; 81003; 82306; 82570; 83520; 83970; 84156; 85027; 85652; 86038; 86200; 86225; 86256; 86376; 86800

== ENCOUNTER 2019-02-05 08:31 | Outpatient (CLI) | payer MEDICARE ==
--- NOTE | 2019-02-05 10:13 | MRI ---
Exam: Brain MRI with and without contrast HISTORY: Hemiplegia, affecting right side dominant. COMPARISON: 10/18/2017 Correlation: Noncontrast head CT 10/17/2017 FINDINGS: Gradient echo sequence: Metallic cyst be artifact due to coil masses near the left or right carotid t erminus. No evidence of hemorrhage. Calvarium: Appropriate T1 marrow signal intensity Midline brain parenchyma: Unremarkable Cerebrum:No parenchymal mass, mass effect or midline shift. Brain volume, age-appropriate. Remote ins ult in the right parietal lobe. Otherwise, cortical martini-white matter differentiation is preserved. Confluent T2 and FLAIR white matter hyperintensities, similar to the previous examination are felt to be due to chronic small vessel ischemic change. Ventricles: No evidence of hydrocephalus. Sinuses and mastoid air cells: Adequate aeration Diffusion: Central arterial flow is maintained. Absent restricted diffusion. Postcontrast images: No pathologic enhancement of the brain parenchyma. IMPRESSION: 1. No pathologic enhancement the brain parenchyma. 2. Absent restricted diffusion. No acute infarct. 3. Confluent white matter hyperintensities due to chronic small vessel ischemic change. 4. Redemonstration of aneurysm coils involving the left and right supraclinoid internal carotid arter ies.
[2019-02-05] MEDS ORDERED: Gadobenate Dimeglumine 529 MG/1 ML (20ML VIAL) ONE (10:37)
== END 2019-02-05 08:32 | disposition home or self-care (01) ==
LOC: BICMRI 08:31
PROVIDERS: ATTEND Psychiatry & Neurology Neurology
DX: G81.91 Hemiplegia, unspecified affecting right dominant side (principal); R90.82 White matter disease, unspecified; I72.0 Aneurysm of carotid artery
CPT/HCPCS: 70553; 82565; A9577

== ENCOUNTER 2019-02-12 12:40 | Outpatient (CLI) | payer MEDICARE ==
--- NOTE | 2019-02-12 13:36 | ULT ---
BILATERAL CAROTID DUPLEX ULTRASOUND: HISTORY: Right dominant hemiplegia TECHNIQUE: Grayscale, color-flow and spectral Doppler ultrasound imaging of the extracranial carotid artery syst ems was performed bilaterally. FINDINGS: There is plaque formation on both sides. The peak systolic velocity in the right ICA measures 82 cm/s with an end-diastolic velocity of 34 cm/ s and a systolic ratio of 1.02. The peak systolic velocity in the left ICA measures 155 cm/s with an end-diastolic velocity of 68 cm/s and a systolic ratio of 1.67. Flow in both vertebral arteries remains antegrade. IMPRESSION: Moderate (50-69%) stenosis of the left ICA.
== END 2019-02-12 12:41 | disposition home or self-care (01) ==
LOC: BICULT 12:40
PROVIDERS: ATTEND Psychiatry & Neurology Neurology
DX: G81.91 Hemiplegia, unspecified affecting right dominant side (principal); I65.22 Occlusion and stenosis of left carotid artery
CPT/HCPCS: 36415; 80053; 80061; 82306; 83036; 84443; 85025; 93880

== ENCOUNTER 2019-07-23 13:20 | Outpatient (CLI) | payer MEDICARE ==
--- NOTE | 2019-07-23 14:20 | BD ---
EXAM: DEXA bone density examination HISTORY: 69-year-old postmenopausal female for screening COMPARISON: None FINDINGS: L1--bone mineral density 0.783 g/sq cm; T score -1.9 L2--bone mineral density 0.774 g/sq cm; T score -2.3 L3--bone mineral density 0.792 g/sq cm; T score -2.7 L4--bone mineral density 0.884 g/sq cm; T score -1.6 Total L1-L4--bone mineral density 0.815 g/sq cm; T score -2.1 Left femoral neck--bone mineral density0.589; T score -2.3 Total proximal left femur--bone mineral density 0.680; T score -2.2 IMPRESSION: Osteopenia.
--- NOTE | 2019-07-23 14:40 | RAD ---
EXAM: Chest 2 views: HISTORY: Hypertension COMPARISON: None. FINDINGS: There is a normal-sized cardiomediastinal silhouette. Atherosclerotic calcifications are seen in the aorta. There is no evidence of consolidation, mass, or pleural effusion. The bones are unremarkable. IMPRESSION: No evidence of acute cardiopulmonary disease
--- NOTE | 2019-07-23 14:41 | RAD ---
EXAM: 3 views of the lumbosacral spine HISTORY: Low back pain for 30 years COMPARISON: None FINDINGS: 3 views of the lumbosacral spine shows normal height and alignment of the vertebral bodies and intervertebral discs without fracture or subluxation. Moderate to severe posterior facet arthrosis is seen in the lower lumbosacral spine. No significant osteophytes are seen surrounding the intervertebral discs. The sacroiliac joints are unremarkable. Atherosclerotic calcification are seen in the aorta. IMPRESSION: Moderate degenerative changes of the lumbar spine as above
--- NOTE | 2019-07-23 15:11 | RAD ---
CERVICAL SPINE 4 VIEWS: HISTORY: Scoliosis, headache. FINDINGS: Cervical vertebrae maintain normal height and alignment. There is mild loss of disk space at C6-7. Very mild degenerative change noted. Posterior alignment is preserved. Mild facet hypertrophy. IMPRESSION: Mild degenerative change. POS: [facility]
--- NOTE | 2019-08-20 15:40 | MMO ---
Bilateral MAMMO Bilat Screen [facility]DI+ALYCE. CLINICAL HISTORY: Patient is 69 years old and is seen for screening. The patient has the following family history of breast cancer: paternal grandmother, at age 60. The patient has no personal history of cancer. The patient has a history of left needle biopsy at age 29 - benign. VIEWS: The views performed were: bilateral craniocaudal with tomosynthesis and bilateral mediolateral oblique with tomosynthesis. FILMS COMPARED: The present examination has been compared to prior imaging studies performed at [facility] [place] on 03/08/2016, 03/21/2016 and 10/02/2016. This study has been interpreted with the assistance of computer-aided detection. MAMMOGRAM FINDINGS: There are scattered fibroglandular densities. There are benign appearing calcifications seen in both breasts. There are no suspicious masses, suspicious calcifications, or new areas of architectural distortion. IMPRESSION: THERE IS NO MAMMOGRAPHIC EVIDENCE OF MALIGNANCY. A ROUTINE FOLLOW-UP MAMMOGRAM IN 1 YEAR IS RECOMMENDED. THE RESULTS OF THIS EXAM WERE SENT TO THE PATIENT. ACR BI-RADS Category 2 - Benign finding MAMMOGRAPHY NOTE: 1. A negative mammogram report should not delay a biopsy if a dominant of clinically suspicious mass is present. 2. Approximately 10% to 15% of breast cancers are not detected by mammography. 3. Adenosis and dense breasts may obscure an underlying neoplasm. Reported by: VANESSA BOYD MD Electonically Signed: [id number]
== END 2019-07-23 13:21 | disposition home or self-care (01) ==
LOC: BICMAMMO 13:20
PROVIDERS: ATTEND Family Medicine
DX: Z12.31 Encounter for screening mammogram for malignant neoplasm of breast (principal); Z13.820 Encounter for screening for osteoporosis; M41.9 Scoliosis, unspecified; M47.816 Spondylosis without myelopathy or radiculopathy, lumbar region; M85.89 Other specified disorders of bone density and structure, multiple sites; Z80.3 Family history of malignant neoplasm of breast; M47.812 Spondylosis without myelopathy or radiculopathy, cervical region
CPT/HCPCS: 71046; 72040; 72100; 77063; 77067; 77080

== ENCOUNTER 2019-09-23 12:21 | Emergency (ER) | payer MEDICARE ==
[2019-09-23] MEDS ORDERED: Iopamidol-370 76% 500 ML 1 ML ONE (13:19)
[2019-09-23 13:28] LABS: #Basophils 0.1 thou/uL (0.0-0.2); #Lymphocytes 2.4 thou/uL (1.20-3.40); #Neutrophils 7.2 thou/uL (1.40-6.50); %Basophils 0.6 % (0.0-1.0); %Eosinophils 0.4 % (0.0-10.0); %Lymphocytes 22.7 % (21.0-51.0); %Neutrophils 67.2 % (42.0-75.0); Hemoglobin 14.3 g/dL (12.0-16.0); Mean Platelet Volume 7.1 fL (7.4-10.4); Platelet Count 344 thou/uL (130-400); Red Blood Cell (RBC) Count 4.22 mill/uL (4.20-5.40); White Blood Cell (WBC) Count 10.7 thou/uL (4.8-10.8)
[2019-09-23 13:50] LABS: ALT (SGPT) 7 U/L (8-55); AST (SGOT) 12 U/L (5-34); Albumin 4.1 g/dL (3.4-4.8); Alkaline Phosphatase 79 U/L (40-110); Anion Gap 12 mmol/L (10-20); BUN (Urea Nitrogen) 9 mg/dL (9.8-20.1); Bilirubin, Total 0.4 mg/dL (0.2-1.2); Calc. Creatinine Clearance 0 mL/min (70-130); Calcium 9.6 mg/dL (7.8-10.44); Carbon Dioxide 28 mmol/L (23-31); Chloride 105 mmol/L (98-107); Estimated GFR-MDRD 42; Glucose 87 mg/dL (80-115); Potassium 4.5 mmol/L (3.5-5.1); Protein, Total 7.1 g/dL (6.0-8.3); Sodium 140 mmol/L (136-145)
[2019-09-23 15:10] LABS: Bilirubin Negative (Negative); Blood, Urine Negative (Negative); Clarity Clear (Clear); Glucose, Urine (Dipstick) Normal (Negative); Leukocyte Negative Leu/uL (Negative); Nitrite Negative (Negative); Protein, Urine (Dipstick) Negative (Neg-Trace); Urobilinogen Normal mg/dL (Less than 2)
--- NOTE | 2019-09-23 15:20 | CT ---
CT abdomen and pelvis with IV contrast HISTORY: Left lower quadrant pain. COMPARISON: 09/09/2013. FINDINGS: Old left lower rib fractures. Normal spleen not visible. Multiple small splenules again dem onstrated within the upper abdomen similar in appearance to the previous exam. Small hyperdense stones within the dependent portion of the gallbladder lumen. Lobulation and cysts of the kidneys similar in appearance to the prior study. There is prominent calc ification throughout the arterial structures with likely significant stenosis of the iliac arteries. Prominent degenerative changes lower lumbar spine. No evidence of bowel obstruction. Extensive diverticula of the colon. Subtle stranding in the fat vicki und the upper to mid sigmoid colon with circumferential wall thickening. It is less prominent than on the 09/09/2013 study. No significant free fluid or free air. Nonspecific reactive appearing lymph nodes throughout the retroperitoneum. IMPRESSION: Prominent diverticulosis with inflamed appearance of the sigmoid colon. Short segment col itis likely related to diverticulitis. No evidence of complication. Cholelithiasis. Prominent atherosclerosis with likely stenosis of the right common iliac artery.
[2019-09-23] MEDS ORDERED: Ciprofloxacin 500 MG TAB ONE (15:41)
[2019-09-23] MEDS ORDERED: metroNIDAZOLE 500 MG/100 ML BAG ONE (15:42)
== END 2019-09-23 16:25 | disposition home or self-care (01) ==
LOC: ERS 12:21
DX: K57.32 Diverticulitis of large intestine without perforation or abscess without bleeding (principal); J44.9 Chronic obstructive pulmonary disease, unspecified; E78.00 Pure hypercholesterolemia, unspecified; E78.2 Mixed hyperlipidemia; M81.0 Age-related osteoporosis without current pathological fracture; Z86.73 Personal history of transient ischemic attack (TIA), and cerebral infarction without residual deficits; F31.9 Bipolar disorder, unspecified; K59.00 Constipation, unspecified
CPT/HCPCS: 36415; 74177; 80053; 81003; 83605; 83690; 85025; 96365; Q9967

== ENCOUNTER 2020-08-07 01:40 | Observation (INO) | payer MEDICARE ==
[2020-08-07 02:13] LABS: #Basophils 0.1 thou/uL (0.0-0.2); #Lymphocytes 3.2 thou/uL (1.20-3.40); #Monocytes 1.1 thou/uL (0.11-0.59); #Neutrophils 4.3 thou/uL (1.40-6.50); %Basophils 1.3 % (0.0-1.0); %Eosinophils 0.3 % (0.0-10.0); %Lymphocytes 36.2 % (21.0-51.0); %Monocytes 12.4 % (0.0-10.0); %Neutrophils 49.8 % (42.0-75.0); Hemoglobin 13.3 g/dL (12.0-16.0); Mean Corpuscular Hemoglobin 34.7 pg (27.0-31.0); Mean Platelet Volume 6.7 fL (7.4-10.4); Platelet Count 288 thou/uL (130-400); RBC Distribution Width 10.6 % (11.5-14.5); Red Blood Cell (RBC) Count 3.82 mill/uL (4.20-5.40); White Blood Cell (WBC) Count 8.7 thou/uL (4.8-10.8)
[2020-08-07 02:33] LABS: ALT (SGPT) 17 U/L (8-55); AST (SGOT) 18 U/L (5-34); Albumin 4.1 g/dL (3.4-4.8); Alkaline Phosphatase 98 U/L (40-110); Anion Gap 13 mmol/L (10-20); BUN (Urea Nitrogen) 29 mg/dL (9.8-20.1); Bilirubin, Total 0.2 mg/dL (0.2-1.2); Calc. Creatinine Clearance 0 mL/min (70-130); Calcium 8.8 mg/dL (7.8-10.44); Carbon Dioxide 26 mmol/L (23-31); Chloride 105 mmol/L (98-107); Globulin 2.6 g/dL (2.4-3.5); Glucose 112 mg/dL (80-115); Potassium 4.3 mmol/L (3.5-5.1); Protein, Total 6.7 g/dL (6.0-8.3); Sodium 140 mmol/L (136-145)
[2020-08-07 02:33] LABS: Bilirubin Negative (Negative); Blood, Urine Trace (Negative); Clarity Clear (Clear); Glucose, Urine (Dipstick) Normal (Negative); Ketone, Urine Negative (Negative); Leukocyte Negative Leu/uL (Negative); Nitrite Negative (Negative); Protein, Urine (Dipstick) Negative (Neg-Trace); RBC/HPF 0-3 HPF (0-3); Specific Gravity, Urine 1.009 (1.002-1.036); Squamous Epithelial 0-3 HPF (0-3); Urobilinogen Normal mg/dL (Less than 2); WBC/HPF 0-3 HPF (0-3)
[2020-08-07 02:52] LABS: Bacteria/HPF Rare-Few HPF (None Seen)
[2020-08-07] MEDS ORDERED: Aspirin Chewable 81 MG TAB ONE (03:39)
[2020-08-07] MEDS ORDERED: Ondansetron PF 4 MG/2 ML Vial IVP PRN (05:02)
[2020-08-07] MEDS ORDERED: Ondansetron ODT 4 MG TAB PO PRN (05:02)
[2020-08-07 05:18] VITALS: BMI 23.3
--- NOTE | 2020-08-07 05:24 | PDOC.HHP ---
Hospitalist HPI - History of Present Illness Right eye pain, blurry vision History of Present Illness: This is a 70-year-old female patient with a history of strokes, hypertension, hyperlipidemia and previous brain aneurysmal coiling who presents today with sudden onset unsteadiness in her gait and difficulty seen with her right eye with pain. Symptoms started about an hour prior to presentation when she noted unsteadiness of her gait and multiple images when she looked with both eyes which improved wi th closing of her right eye. She also noticed some pain in her right eye. She sat down for a few minutes to see whether this would resolve but did not. There was no associated focal weakness in her arms or legs or any sensory changes. No tinnitus or facial asymmetry noted. She denied any associated headache, fevers cough shortness of breath or palpitations. She notes chronic paresthesia in her feet bilaterally which has been chronic without any acute change recently. She activated EMS she was brought in for further evaluation. As presentation and CT scan of her head was negative for any intracranial process. CBC showed a mild macrocytosis otherwise generally within normal range. BMP showed creatinine of 1.44 at around baseline. Urine was generally bland. She was started on aspirin 325 mg. At the time of my assessment, his symptoms had almost completely disappeared without any blurring or diplopia noted. She also notes no ongoing pain in her right eye. Hospitalist ROS - Review of Systems Constitutional: denies: fever, chills, sweats, weakness Eyes: denies: pain, vision change, conjunctivae inflammation Respiratory: denies: cough, dry, shortness of breath, hemoptysis Cardiovascular: denies: chest pain, palpitations, orthopnea Gastrointestinal: denies: nausea, vomiting, abdominal pain Musculoskeletal: denies: neck pain, shoulder pain, arm pain Neurological: denies: weakness, numbness, incoordination, change in speech, seizures Other: Had initial unsteady gait. All other systems reviewed; all pertinent +/- noted in HPI/Subj - Medication Medications: Medications: Atorvastatin, B12, losartan, vitamin D Allergies: Amoxicillin, bupropion, statins, methocarbamol, [place] Hospitalist History - Past Medical History MEDICAL PHOTOGRAPHER: reports: CVA - Past Surgical History Past Surgical History: reports: Appendectomy, Tonsillectomy - Social History Smoking Status: Current every day smoker Alcohol: reports: Occassional Living Situation: Alone - Exam General Appearance: awake alert Eye: PERRL, anicteric sclera ENT: normocephalic atraumatic, no oropharyngeal lesions Heart: RRR, no murmur, no gallops, no rubs, normal peripheral pulses Respiratory: CTAB, no wheezes, no rales, no ronchi, normal chest expansion Gastrointestinal: soft, non-tender, non-distended, normal bowel sounds Extremities: no cyanosis, no clubbing, no edema Neurological: cranial nerve grossly intact, normal sensation to touch, no weakness Psychiatric: normal affect, normal behavior, A&O x 3 Hospitalist Results - Labs Result Diagrams: 08/08/20 06:40 08/08/20 06:40 Lab results: WBC 8.7 thou/uL (4.8-10.8) 08/07/20 02:06 Hgb 13.3 g/dL (12.0-16.0) 08/07/20 02:06 Hct 39.1 % (36.0-47.0) 08/07/20 02:06 MCV 102.0 fL (78.0-98.0) H 08/07/20 02:06 Plt Count 288 thou/uL (130-400) 08/07/20 02:06 Neutrophils % 49.8 % (42.0-75.0) 08/07/20 02:06 Sodium 140 mmol/L (136-145) 08/07/20 02:06 Potassium 4.3 mmol/L (3.5-5.1) 08/07/20 02:06 Chloride 105 mmol/L (98-107) 08/07/20 02:06 Carbon Dioxide 26 mmol/L (23-31) 08/07/20 02:06 BUN 29 mg/dL (9.8-20.1) H 08/07/20 02:06 Creatinine 1.44 mg/dL (0.6-1.1) H 08/07/20 02:06 Glucose 112 mg/dL (80-115) 08/07/20 02:06 Calcium 8.8 mg/dL (7.8-10.44) 08/07/20 02:06 Total Bilirubin 0.2 mg/dL (0.2-1.2) 08/07/20 02:06 AST 18 U/L (5-34) 08/07/20 02:06 ALT 17 U/L (8-55) 08/07/20 02:06 Alkaline Phosphatase 98 U/L (40-110) 08/07/20 02:06 Troponin I Less than 0.010 ng/mL (< 0.028) 08/07/20 02:06 Serum Total Protein 6.7 g/dL (6.0-8.3) 08/07/20 02:06 Albumin 4.1 g/dL (3.4-4.8) 08/07/20 02:06 Urine Ketones Negative mg/dL (Negative) 08/07/20 02:16 Urine Blood Trace (Negative) A 08/07/20 02:16 Urine Nitrite Negative (Negative) 08/07/20 02:16 Ur Leukocyte Esterase Negative Tin/uL (Negative) 08/07/20 02:16 Urine RBC 0-3 HPF (0-3) 08/07/20 02:16 Urine WBC 0-3 HPF (0-3) 08/07/20 02:16 Ur Squamous Epith Cells 0-3 HPF (0-3) 08/07/20 02:16 Urine Bacteria Rare-Few HPF (None Seen) 08/07/20 02:16 Hospitalist H&P A/P - Plan Plan: 70-year-old female patient with a history of stroke/TIA presenting with blurry vision involving her right eye and unsteady gait. Symptoms had resolved at the time of assessment however ongoing concerns for recurrent TIA/stroke. Stroke/TIA Involving right IV for steady gait. Symptoms resolved CT head negative Order MRI Echocardiogram with bubble study PT Started aspirin We will continue statin Neuro consult. CKD Monitor BMP VT prophylaxisHeparin CODE STATUSfull code
--- NOTE | 2020-08-07 07:39 | CT ---
PRELIMINARY REPORT/DIRECT RADIOLOGY/EMERGENCY AFTER HOURS PROCEDURE: EXAM: CT Head Without Intravenous Contrast. CLINICAL HISTORY: 70F with hx of htn, hyperlipidemia, ischemic stroke 16 mos ago with residual R foot drop, no anticoagulation, presenting for concern for symptoms that patient had with her previous stroke. TECHNIQUE: Axial computed tomography images of the head/brain without intravenous contrast. COMPARISON: None provided. FINDINGS: BRAIN: No acute intraparenchymal hemorrhage. No mass lesion. No CT evidence for acute territorial inf arct. No midline shift or extra-axial collection. Hypodensity of the white matter is nonspecific but likely represents chronic microvascular ischemic disease. Surgical material in the regions of the bilateral ICA terminus bilaterally, causing streak artifact at the skull base. VENTRICLES: No hydrocephalus. Volume loss. ORBITS: The globes are intact. SINUSES AND MASTOIDS: The paranasal sinuses and mastoid air cells are clear. SOFT TISSUES: No significant facial or scalp soft tissue swelling evident. No radiopaque foreign body is seen. BONES: No acute skull fracture. IMPRESSION: Chronic parenchymal changes. No acute intracranial abnormality. ELECTRONICALLY SIGNED BY: Brenda Vazquez MD Aug 07, 2020 3:37:19 AM ROOF SERVICE TECHNICIAN FINAL REPORT HEAD CT WITHOUT CONTRAST: DATE: 08/07/2020. COMPARISON: None. HISTORY: Headache, hyperlipidemia, prior stroke. TECHNIQUE: Axial CT imaging at 5 mm intervals from vertex through skull base without contrast. FINDINGS: The visualized paranasal sinuses and mastoid air cells are well-aerated. No displaced calvarial fract ure is seen. Metallic density in the supraclinoid region suggests bilateral aneurysm coiling with adjacent stent m aterial. No intracranial hemorrhage, midline shift, or mass effect. There are numerous areas of hypodensity involving the periventricular, deep, and subcortical white ma tter, evidence of small vessel disease. IMPRESSION: Chronic findings as above. No acute findings. Transcribed Date/Time: 08/07/2020 8:16 AM
--- NOTE | 2020-08-07 08:25 | ULT ---
US Carotid Doppler STANDARD History: TIA. Stroke Comparison: Carotid Doppler ultrasound 2019 Findings: Real-time grayscale, color and spectral analysis of the extracranial carotid and vertebral arteries was performed. Moderate atherosclerotic plaque both carotid bulbs which is calcific and soft. Antegrade flow both ve rtebral arteries. No elevated peak systolic velocities within the internal carotid arteries. Impression: No hemodynamically significant stenosis.
[2020-08-07] MEDS: Aspirin 81 mg Enteric Coated Tablet PO SCH (08:45)
[2020-08-07] MEDS: Heparin 5,000 UNITS/ML VIAL SC SCH ×3 (08:46→20:47)
--- NOTE | 2020-08-07 08:54 | PDOC.HOSPP ---
- Subjective Encounter Date: 08/07/20 Encounter Time: 08:30 Subjective: Patient seen today, denies new complaints, reports being cold after getting back from [place]. Denies dizziness, SOB, cough, abdominal pain. - Objective Vital Signs & Weight: Vital Signs (12 hours) Temp Pulse Resp BP Pulse Ox 08/07/20 07:49 97.9 F 75 16 92/52 L 93 L 08/07/20 05:00 97.8 F 69 16 112/58 L 93 L Weight Weight 58.014 kg Result Diagrams: 08/07/20 02:06 08/07/20 02:06 Hospitalist ROS - Review of Systems Constitutional: reports: other (reports feeling cold after getting back from a procedure) Eyes: denies: pain, conjunctivae inflammation, eyelid inflammation, redness, other ENT: denies: ear pain, ear discharge, nose pain, nose discharge, nose congestion, mouth pain, mouth swelling, throat pain, throat swelling, other Respiratory: denies: cough, dry, shortness of breath, hemoptysis, SOB with excertion, pleuritic pain, sputum, wheezing, other Cardiovascular: denies: chest pain, palpitations, orthopnea, paroxysmal noc. dyspnea, edema, light headedness, other Gastrointestinal: denies: nausea, vomiting, abdominal pain, diarrhea, constipation, melena, hematochezia, other Musculoskeletal: denies: neck pain, shoulder pain, arm pain, back pain, hand pain, leg pain, foot pain, other Skin: denies: rash, lesions, rommel, bruising, other Other: vision changes to right eye - Medication Medications: Active Medications Generic Name Dose Route Start Last Admin Trade Name Marta PRN Reason Stop Dose Admin Aspirin 81 mg 08/07/20 09:00 08/07/20 08:45 Aspirin 81 Mg Enteric Coated Tablet PO 81 mg DAILY MAGGIE Administration Heparin Sodium (Porcine) 5,000 units 08/07/20 09:00 08/07/20 08:46 Heparin 5,000 Units/Ml Vial SC Not Given TID MAGGIE - Exam General Appearance: awake alert Eye: anicteric sclera ENT: normocephalic atraumatic, moist mucosa Neck: supple, no JVD Heart: RRR Respiratory: CTAB, normal chest expansion Gastrointestinal: soft, normal bowel sounds Extremities: no edema Skin: normal turgor Neurological: no new deficit Psychiatric: oriented to person, oriented to place, flat affect Hosp A/P (1) Dizziness Code(s): R42 - DIZZINESS AND GIDDINESS Status: Acute (2) Blurred vision, right eye Code(s): H53.8 - OTHER VISUAL DISTURBANCES Status: Acute (3) CKD (chronic kidney disease), stage III Code(s): N18.3 - CHRONIC KIDNEY DISEASE, STAGE 3 (MODERATE) * DO NOT USE * Status: Chronic (4) Hypertension Code(s): I10 - ESSENTIAL (PRIMARY) HYPERTENSION Status: Chronic - Plan PT/OT, speech therapy, DVT proph w/heparin, DVT proph w/SCDs, GI proph Dizziness/rt eye vision changes/TIA #awaiting stroke team eval Awaiting neurology consult Awaiting MRI and Echo Carotid Doppler negative Continue ASA/Statin Further intervention per consultants DVT/PUD prevention
[2020-08-07] MEDS ORDERED: diphenhydrAMINE 25 MG CAP PO PRN (09:02)
--- NOTE | 2020-08-07 10:44 | MRI ---
MRI of thebrain: 08/07/2020 COMPARISON:None available HISTORY:Evaluate for acute infarction, headache, prior history of stroke with residual right sided fo ot drop TECHNIQUE: Multiplanar multisequence MR imaging of thebrain without contrast Findings:The diffusion weighted imaging demonstrates no evidence for acute infarction. The axial gradient echo imaging demonstrates no evidence for intracranial hemorrhage. There is extensive periventricular, deep, and subcortical white matter T2 and FLAIR hyperintensity, e vidence of small vessel disease. Arterial flow voids at the axial level of the skull base appear unremarkable on the T2-weighted imagi ng. The regional bone marrow signal intensity appears within normal limits. Imaged paranasal sinuses and mastoid air cells unremarkable. Minimal artifact associated with bilater al supraclinoid ICA aneurysm coiling. IMPRESSION:Prominent small vessel disease. No acute infarction.
[2020-08-07 14:57] LABS: SARS-CoV-2 MS2 Positive; SARS-CoV-2 N Gene Negative; SARS-CoV-2 S Gene Negative; SARS-CoV-2 by NAA Not Detected (NotDetected); SARS-CoV-2 orf1ab Negative
[2020-08-07] MEDS ORDERED: Sodium Chloride 0.9% 500 ML IV SCH (16:30)
[2020-08-07] MEDS ORDERED: Sodium Chloride 0.9% 1,000 ML IV SCH (16:45)
[2020-08-07] MEDS: Carvedilol 3.125 MG TAB PO SCH (17:25)
--- NOTE | 2020-08-07 20:29 | CON ---
DATE OF CONSULTATION: 08/07/2020 CONSULTING PHYSICIAN: Hospitalist Service. IMPRESSION: 1. 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 2. Past history of stroke. 3. History of aneurysm coiling. 4. Hypertension. 5. Hyperlipidemia. PLAN: 1. Continue aspirin and statin. 2. Office followup as scheduled. HISTORY OF PRESENT ILLNESS: Ms. Alanis is a 70-year-old woman who presented with an acute event. She was sitting in her house when she started to feel lightheaded. She went and sat down and laid her head over her arms. She started experiencing pain in her right eye. When she looked through the right eye, she had triple vision. She shut a right eye and she could see clearly out of the left. She noted some tingling in her right foot. Her symptoms went on for somewhere between 5 and 6 hours. They resolved spontaneously. She came into the ER and had a CT, which was unremarkable. Her carotid ultrasound shows no stenosis. She had a followup MRI of the brain, which showed some small vessel ischemic changes, but no acute ischemic injury. She denies having an event anything quite like this. She does have a past history of migraines. PAST MEDICAL HISTORY: As listed above. ALLERGIES: PENICILLIN, WELLBUTRIN, NORCO, AND ROBAXIN. SOCIAL HISTORY: Positive for tobacco use. FAMILY HISTORY: Noncontributory. REVIEW OF SYSTEMS: Ten-system review of systems is otherwise negative. PHYSICAL EXAMINATION: GENERAL: She is a thin, elderly lady, sitting up in bed, in no distress. VITAL SIGNS: Have been stable. She is afebrile. HEENT: Pupils are equal and reactive. Conjunctivae clear. Oropharynx clear. NECK: Supple. No lymphadenopathy. ABDOMEN: Soft and nontender. SKIN: Clear. EXTREMITIES: No cyanosis or edema. NEUROLOGIC: She is alert and appropriate. Speech is fluent and clear. She has no focal deficits. No abnormal movements were seen. SUMMARY: This is a 70-year-old woman who had orbital pain and vision distortion that is atypical for a stroke, but could be consistent with an orbital migraine. Her workup is otherwise negative. I would continue her prior treatment plan. I would be happy to follow up with her in the office schedule. Job ID: [id number]
[2020-08-07] MEDS: Acetaminophen 325 MG TAB PO PRN (20:41)
[2020-08-07] MEDS: lamoTRIgine 100 MG TAB PO SCH (20:46)
[2020-08-07] MEDS: Losartan 25 MG TAB PO SCH (20:47)
[2020-08-07] MEDS ORDERED: Carvedilol 3.125 MG TAB PO SCH (21:00)
[2020-08-07] MEDS ORDERED: Atorvastatin Calcium 40 MG TAB PO SCH (21:00)
[2020-08-07] MEDS ORDERED: Non-Formulary Item 1 EACH (Losartan Potassium [Losartan Potassium] 50 MG Tablet) PO SCH (21:00)
[2020-08-07] MEDS ORDERED: Azelastine 137 MCG/Spray 30 ML NS SCH (21:00)
[2020-08-07] MEDS ORDERED: Non-Formulary Item 1 EACH (Lamotrigine [Lamictal] 200 MG Tablet) PO SCH (21:00)
[2020-08-07] MEDS ORDERED: Calcium Carbonate 600 MG TAB PO SCH (21:00)
[2020-08-07] MEDS ORDERED: traZODone HCl 50 MG TAB PO SCH (21:00)
[2020-08-07] MEDS ORDERED: Non-Formulary Item 1 EACH (Trazodone [Trazodone] 100 MG Tab) PO SCH (21:00)
[2020-08-07] MEDS ORDERED: hydrALAZINE 10 MG TAB PO SCH ×2 (21:00)
[2020-08-08] MEDS ORDERED: Sodium Chloride 0.9% 250 ML IV SCH (04:45)
[2020-08-08] MEDS: Azelastine 137 MCG/Spray 30 ML NS SCH ×2 (06:12→11:03)
[2020-08-08] MEDS: Acetaminophen 325 MG TAB PO PRN ×2 (06:33→14:23)
[2020-08-08 07:24] LABS: #Basophils 0.1 thou/uL (0.0-0.2); #Lymphocytes 2.6 thou/uL (1.20-3.40); #Monocytes 1.1 thou/uL (0.11-0.59); %Basophils 0.8 % (0.0-1.0); %Eosinophils 0.3 % (0.0-10.0); %Lymphocytes 29.4 % (21.0-51.0); %Monocytes 12.6 % (0.0-10.0); %Neutrophils 56.9 % (42.0-75.0); Hemoglobin 12.4 g/dL (12.0-16.0); Mean Corpuscular HGB CONC 33.8 g/dL (32.0-36.0); Mean Corpuscular Hemoglobin 35.5 pg (27.0-31.0); Platelet Count 260 thou/uL (130-400); RBC Distribution Width 10.6 % (11.5-14.5); White Blood Cell (WBC) Count 8.9 thou/uL (4.8-10.8)
[2020-08-08 07:32] LABS: Anion Gap 11 mmol/L (10-20); BUN (Urea Nitrogen) 20 mg/dL (9.8-20.1); Calc. Creatinine Clearance 36 mL/min (70-130); Calcium 8.8 mg/dL (7.8-10.44); Carbon Dioxide 26 mmol/L (23-31); Cardiac Risk 3.2 (Less than 4.5); Chloride 107 mmol/L (98-107); Cholesterol 128 mg/dl (< 200 Desired); Glucose 84 mg/dL (80-115); HDL Cholesterol 40 mg/dL (>60 Neg Risk); LDL Cholesterol, Calculated 60 mg/dL; Potassium 4.2 mmol/L (3.5-5.1); Sodium 140 mmol/L (136-145); Triglycerides 139 mg/dL (Less than 150)
[2020-08-08] MEDS: Heparin 5,000 UNITS/ML VIAL SC SCH (07:50)
[2020-08-08] MEDS: Losartan 25 MG TAB PO SCH (07:50)
[2020-08-08] MEDS: Carvedilol 3.125 MG TAB PO SCH (07:51)
[2020-08-08] MEDS: lamoTRIgine 100 MG TAB PO SCH (07:51)
[2020-08-08] MEDS: Aspirin 81 mg Enteric Coated Tablet PO SCH (07:52)
[2020-08-08] MEDS ORDERED: Non-Formulary Item 1 EACH (Sertraline Hcl [Sertraline Hcl] 50 MG Tablet) PO SCH (09:00)
[2020-08-08] MEDS ORDERED: Non-Formulary Item 1 EACH (Ubidecarenone [Co Q-10] 200 MG Capsule) PO SCH (09:00)
[2020-08-08] MEDS ORDERED: Levothyroxine Sodium 75 MCG TAB PO SCH (09:00)
[2020-08-08] MEDS ORDERED: Ubidecarenone 50 MG CAP PO SCH (09:00)
[2020-08-08 12:00] VITALS: TEMP 98.1
[2020-08-08 13:07] VITALS: BP 123/66
--- NOTE | 2020-08-09 09:49 | DIS ---
DATE OF ADMISSION: 08/07/2020 DATE OF DISCHARGE: 08/08/2020 NEUROLOGIST: Dr. Greenberg. CONSULTATIONS: Dr. Greenberg. PROCEDURES: 1. The patient had an echocardiogram which showed an EF of 60% to 65%, normal size left atrium, left ventricular size is normal, impaired relaxation compatible with diastolic dysfunction, mild mitral regurgitation, mild to moderate tricuspid regurgitation. No thrombus noted in the cardiac chambers. The patient also had an MRI of the brain, which showed no acute infarction, prominent small-vessel disease. 2. The patient had a brain CT, which showed chronic findings but no acute findings. The patient also had a carotid Doppler study, which showed no evidence of hemodynamically significant stenosis. SUMMARY OF VISIT: Ms. Alanis is a very pleasant 70-year-old female with a history of strokes, hypertension, hyperlipidemia, and an aneurysm in the brain which was coiled, and she presents today with a sudden onset of unsteadiness in her gait and difficulty seeing with her right eye and a headache over that side. Symptoms started an hour before she presented to the emergency room for evaluation and reports that she did have some residual pain in that right eye. She denied any focal weakness in arms or legs or any sensory changes. She denied any upper respiratory symptoms, any fever or chills. She was evaluated for a possible TIA, was given an aspirin. CT scan as above and then admitted for further TIA, stroke workup. She was seen by Dr. Greenberg, whom she normally sees and he thought her symptoms were more consistent with an orbital migraine and that he would like the patient to see him in the office as a followup. Lab work remained stable. Creatinine this morning was 1.35, which is at baseline for the patient. Other lab work; she had a folic acid which was 13, fasting lipids which were all within normal limits, a cortisol level at 5 and TSH of 0.88. The patient is on levothyroxine. The patient reports that she had a headache yesterday and today and reports that she remembers after talking to Dr. Greenberg that she had these migraine headaches many years ago and they caused her blood pressure to go down. We were going to send her home yesterday, but her blood pressure dropped to 85/53 and rebounded with a little fluid resuscitation. She received fluids overnight, medication for her headache and today at noon her blood pressure returned to normal baseline for her at 137/60. The patient was seen this morning, reports other than the little bit of a headache, was feeling back to baseline and was ready to go home today. DISPOSITION: Home. DISPOSITION CONDITION: Stable. DISPOSITION INSTRUCTIONS: The patient instructed to follow up with her PCP within the next 7 to 10 days. Please note that we are discontinuing her losartan 50 mg p.o. b.i.d. for the time being. She should follow up with primary care doctor and take her blood pressure twice daily and may restart it if her blood pressure continues to normalize. ALLERGIES: AMOXICILLIN, AMPICILLIN, WELLBUTRIN, HYDROCODONE, ROBAXIN, STATINS. MEDICATIONS: Medications to be restarted; 1. Tylenol 650 mg p.o. q.4 hours p.r.n. 2. Aspirin 81 mg p.o. daily. 3. Atorvastatin 40 mg p.o. at bedtime. 4. Azelastine one spray nostril b.i.d. 5. Calcium carbonate 600 mg p.o. at bedtime. 6. Coreg 3.125 mg p.o. b.i.d. 7. Coenzyme Q 50 mg p.o. daily. 8. Diphenhydramine 25 mg p.o. p.r.n. 9. Lamictal 200 mg p.o. b.i.d. 10. Levothyroxine 75 mcg p.o. daily. 11. Losartan 50 mg p.o. b.i.d., which we will stop this one for now. 12. Sertraline 50 mg p.o. daily. 13. Trazodone 200 mg p.o. at bedtime. Attending physician today is Dr. Montes De Oca. The patient instructed to go to the emergency room if she has any worrisome or concerning symptoms. Job ID: [id number]
== END 2020-08-08 14:42 | disposition home or self-care (01) ==
LOC: ERS 01:40 → 2SE 04:12
PROVIDERS: ADMIT Student in an Organized Health Care Education/Training Program; ATTEND Student in an Organized Health Care Education/Training Program
DX: H53.8 Other visual disturbances (principal); H57.11 Ocular pain, right eye; R42 Dizziness and giddiness; R26.81 Unsteadiness on feet; I12.9 Hypertensive chronic kidney disease with stage 1 through stage 4 chronic kidney disease, or unspecified chronic kidney disease; N18.30 Chronic kidney disease, stage 3 unspecified; E78.5 Hyperlipidemia, unspecified; J44.9 Chronic obstructive pulmonary disease, unspecified; M81.0 Age-related osteoporosis without current pathological fracture; F31.9 Bipolar disorder, unspecified; F17.210 Nicotine dependence, cigarettes, uncomplicated; G43.909 Migraine, unspecified, not intractable, without status migrainosus; Z23 Encounter for immunization; Z86.73 Personal history of transient ischemic attack (TIA), and cerebral infarction without residual deficits; Z79.82 Long term (current) use of aspirin; Z79.899 Other long term (current) drug therapy; Z88.0 Allergy status to penicillin; Z88.8 Allergy status to other drugs, medicaments and biological substances; Z88.5 Allergy status to narcotic agent; Z20.828 Contact with and (suspected) exposure to other viral communicable diseases
CPT/HCPCS: 70450; 70551; 80048; 80053; 80061; 82533; 82746; 84443; 84484; 85025 ×2; 90732; 93005; 93306; 93880; 97116; 97139 ×4; 97535; 99285; G0009; U0003; 36415; 81003; 81015; 87635; 90471; G0378

== ENCOUNTER 2020-11-15 11:09 | Outpatient (CLI) | payer MEDICARE | END 2020-11-15 11:10 | disposition home or self-care (01) | LOC: BICCT 11:09 | PROVIDERS: ATTEND Family Medicine | DX: Z12.31 Encounter for screening mammogram for malignant neoplasm of breast (principal); Z80.3 Family history of malignant neoplasm of breast; F17.210 Nicotine dependence, cigarettes, uncomplicated | CPT/HCPCS: 71271; 77063; 77067 ==

== ENCOUNTER 2022-10-25 12:23 | Outpatient (CLI) | payer MEDICARE | END 2022-10-25 12:24 | disposition home or self-care (01) | LOC: BICCT 12:23 | PROVIDERS: ATTEND Family Medicine | DX: Z12.2 Encounter for screening for malignant neoplasm of respiratory organs (principal); Z12.31 Encounter for screening mammogram for malignant neoplasm of breast; R92.1 Mammographic calcification found on diagnostic imaging of breast; F17.210 Nicotine dependence, cigarettes, uncomplicated; Z91.89 Other specified personal risk factors, not elsewhere classified; Z80.3 Family history of malignant neoplasm of breast | CPT/HCPCS: 71271; 77063; 77067 ==

== ENCOUNTER 2023-05-02 14:25 | Outpatient (CLI) | payer MEDICARE ==
[2023-05-02] MEDS ORDERED: Iopamidol 370 76% 100 ML VIAL ONE (15:40)
== END 2023-05-02 14:26 | disposition home or self-care (01) ==
LOC: BICCT 14:25
PROVIDERS: ATTEND Family Medicine
DX: R91.1 Solitary pulmonary nodule (principal); J43.9 Emphysema, unspecified; I77.810 Thoracic aortic ectasia; N28.89 Other specified disorders of kidney and ureter
CPT/HCPCS: 71260; Q9967

== ENCOUNTER 2023-05-08 14:17 | Outpatient (CLI) | payer MEDICARE | END 2023-05-08 14:18 | disposition home or self-care (01) | LOC: BICCT 14:17 | PROVIDERS: ATTEND Family Medicine | DX: R93.89 Abnormal findings on diagnostic imaging of other specified body structures (principal) | CPT/HCPCS: 74170 ==

== ENCOUNTER 2023-06-05 09:02 | Outpatient (CLI) | payer MEDICARE | END 2023-06-05 09:03 | disposition home or self-care (01) | LOC: BICCT 09:02 | PROVIDERS: ATTEND Urology | DX: N28.1 Cyst of kidney, acquired (principal); N28.89 Other specified disorders of kidney and ureter; K80.20 Calculus of gallbladder without cholecystitis without obstruction; I70.0 Atherosclerosis of aorta; I70.1 Atherosclerosis of renal artery | CPT/HCPCS: 74175; 82565 ==

== ENCOUNTER 2023-09-30 10:00 | Inpatient (IN) | payer MEDICARE ==
[2023-10-17] MEDS ORDERED: CEFAZOLIN 1 GM VIAL ONE (07:04)
[2023-10-17] MEDS ORDERED: Sodium Chloride 0.9% 100 ML ONE (07:05)
[2023-10-17] MEDS ORDERED: Lidocaine 1.5% w/Epi 1:200K 30 ML VIAL (Epid Use) ONE (07:24)
[2023-10-17] MEDS ORDERED: fentaNYL 50 mcg/mL 1 mL Vial ONE (07:33)
[2023-10-17] MEDS ORDERED: fentaNYL PF 100 MCG/2 ML SYRINGE ONE (07:33)
[2023-10-17] MEDS ORDERED: PROPOFOL 20 ML ONE (07:34)
[2023-10-17] MEDS ORDERED: ePHEDrine Sulfate 50 MG/10 ML VIAL ONE ×2 (07:35→09:10)
[2023-10-17] MEDS ORDERED: Phenylephrine 10 MG/ML VIAL ONE (07:35)
[2023-10-17] MEDS ORDERED: Dexamethasone 20 MG/5 ML VIAL ONE (07:56)
[2023-10-17] MEDS ORDERED: Rocuronium Bromide 10 MG/ML (10ML VIAL) ONE (07:56)
[2023-10-17] MEDS ORDERED: Ropivacaine 0.2% HCl/PF 20 ML ONE (08:24)
[2023-10-17] MEDS ORDERED: Naloxone HCl 0.4 mg/ml Vial IVP PRN (09:00)
[2023-10-17] MEDS ORDERED: Moisturizing Cream (Eucerin) 113 GM JAR TOP PRN (09:00)
[2023-10-17] MEDS ORDERED: Promethazine HCl 25 MG/ML VIAL IM PRN (09:00)
[2023-10-17] MEDS ORDERED: diphenhydrAMINE 50 MG/ML VIAL IM PRN (09:00)
[2023-10-17] MEDS ORDERED: Naloxone HCl 0.4 mg/ml Vial IV PRN (09:00)
[2023-10-17] MEDS ORDERED: Promethazine HCl 25 MG SUPP PR PRN (09:00)
[2023-10-17] MEDS ORDERED: Ondansetron PF 4 MG/2 ML Vial IVP PRN (09:00)
[2023-10-17] MEDS ORDERED: Bupivacaine 0.25% 10 ML VIAL EPIDURAL PRN (09:00)
[2023-10-17] MEDS ORDERED: Zolpidem Tartrate 5 MG TAB PO PRN (09:00)
[2023-10-17] MEDS ORDERED: Bacitracin Zinc Ointment 30 gm TUBE ONE (09:21)
[2023-10-17] MEDS ORDERED: Albumin 25% 100 ML ONE (09:21)
[2023-10-17] MEDS ORDERED: NEOSTIGMINE 3 MG/3 ML SYR 3 MG/3 ML SYRINGE ONE (10:39)
[2023-10-17] MEDS ORDERED: Glycopyrrolate 0.2 MG/ML 5 ML SYRINGE ONE (10:39)
[2023-10-17] MEDS ORDERED: hydrALAZINE 20 MG/ML VIAL SLOW IVP PRN (11:44)
[2023-10-17] MEDS ORDERED: Bisacodyl 10 MG SUPP PR PRN (11:44)
[2023-10-17] MEDS ORDERED: Albumin 5% 250 ML ONE (12:04)
[2023-10-17] MEDS: diphenhydrAMINE 50 MG/ML VIAL IVP PRN (13:00)
[2023-10-17] MEDS: Sodium Chloride 0.9% 1,000 ML IV SCH (13:22)
[2023-10-17] MEDS: Acetaminophen 325 MG TAB PO SCH (13:23)
[2023-10-17] MEDS: CEFAZOLIN 1 GM in Sodium Chloride 0.9% 100 ML IVPB SCH (13:23)
[2023-10-17 13:39] VITALS: BMI 23.6
[2023-10-17] MEDS ORDERED: Ipratropium/Albuterol 3 ML NEB NEB PRN (15:32)
[2023-10-17] MEDS ORDERED: Electrolyte Replacement Protocol 1 EACH FS SCH (15:45)
[2023-10-17] MEDS ORDERED: Electrolyte Replacement Protocol FS PRN (16:00)
[2023-10-17 16:08] LABS: #Monocytes 0.8 thou/uL (0.11-0.59); #Neutrophils 12.4 thou/uL (1.40-6.50); %Basophils 0.3 % (0.0-1.0); %Lymphocytes 5.2 % (21.0-51.0); %Monocytes 5.9 % (0.0-10.0); %Neutrophils 88.3 % (42.0-75.0); Hematocrit 37.9 % (36.0-47.0); Hemoglobin 12.6 g/dL (12.0-16.0); Mean Corpuscular HGB CONC 33.2 g/dL (32.0-36.0); Mean Corpuscular Hemoglobin 35.5 pg (27.0-31.0); Mean Corpuscular Volume 106.8 fl (78.0-98.0); Platelet Count 237 10x3/uL (130-400); RBC Distribution Width 14.3 % (11.5-14.5); Red Blood Cell (RBC) Count 3.55 mill/uL (4.20-5.40)
[2023-10-17 16:44] LABS: ALT (SGPT) 12 U/L (8-55); AST (SGOT) 23 U/L (5-34); Albumin 3.8 g/dL (3.4-4.8); Alkaline Phosphatase 66 U/L (40-110); Anion Gap 14 mmol/L (10-20); BUN (Urea Nitrogen) 19 mg/dL (9.8-20.1); Bilirubin, Total 0.3 mg/dL (0.2-1.2); Calc. Creatinine Clearance 39 mL/min (70-130); Calcium 7.8 mg/dL (7.8-10.44); Carbon Dioxide 21 mmol/L (23-31); Chloride 110 mmol/L (98-107); Estimated GFR 48; Globulin 2.1 g/dL (2.4-3.5); Glucose 115 mg/dL (83-110); Potassium 4.6 mmol/L (3.5-5.1); Protein, Total 5.9 g/dL (5.8-8.1); Sodium 140 mmol/L (136-145)
[2023-10-17] MEDS: Cyclobenzaprine 10 MG TAB PO PRN (16:45)
[2023-10-17] MEDS: Nicotine 14 MG PATCH TD SCH (19:50)
[2023-10-17] MEDS ORDERED: Non-Formulary Item 1 EACH (Lamotrigine [Lamictal] 200 MG Tablet) PO SCH (21:00)
[2023-10-17] MEDS ORDERED: Non-Formulary Item 1 EACH (Trazodone [Trazodone] 100 MG Tab) PO SCH (21:00)
[2023-10-17] MEDS ORDERED: Carvedilol 3.125 MG TAB PO SCH (21:00)
[2023-10-17] MEDS: Docusate 100 MG CAP PO SCH (21:06)
[2023-10-17] MEDS: Carvedilol 3.125 MG TAB PO SCH (21:06)
[2023-10-17] MEDS: lamoTRIgine 100 MG TAB PO SCH (21:06)
[2023-10-17] MEDS: Atorvastatin Calcium 20 MG TAB PO SCH (21:06)
[2023-10-17] MEDS: diphenhydrAMINE 25 MG CAP PO PRN (21:06)
[2023-10-17] MEDS: traZODone HCl 50 MG TAB PO SCH (21:06)
[2023-10-18] MEDS: Calcium Carbonate 500 MG ChewTAB PO PRN (00:06)
[2023-10-18 04:20] LABS: #Basophils 0.1 thou/uL (0.0-0.2); #Monocytes 1.6 thou/uL (0.11-0.59); #Neutrophils 12.3 thou/uL (1.40-6.50); %Basophils 0.3 % (0.0-1.0); %Lymphocytes 11.9 % (21.0-51.0); %Monocytes 10.2 % (0.0-10.0); %Neutrophils 77.2 % (42.0-75.0); Hematocrit 36.4 % (36.0-47.0); Hemoglobin 11.9 g/dL (12.0-16.0); Mean Corpuscular HGB CONC 32.7 g/dL (32.0-36.0); Mean Corpuscular Hemoglobin 34.2 pg (27.0-31.0); Mean Corpuscular Volume 104.6 fl (78.0-98.0); Mean Platelet Volume 9.1 fL (7.4-10.4); Platelet Count 236 10x3/uL (130-400); RBC Distribution Width 14.3 % (11.5-14.5); Red Blood Cell (RBC) Count 3.48 mill/uL (4.20-5.40); White Blood Cell (WBC) Count 15.9 10x3/uL (4.8-10.8)
[2023-10-18 04:43] LABS: Anion Gap 12 mmol/L (10-20); BUN (Urea Nitrogen) 19 mg/dL (9.8-20.1); Calc. Creatinine Clearance 40 mL/min (70-130); Carbon Dioxide 24 mmol/L (23-31); Chloride 108 mmol/L (98-107); Estimated GFR 50; Glucose 123 mg/dL (83-110); Potassium 4.5 mmol/L (3.5-5.1); Sodium 139 mmol/L (136-145)
[2023-10-18] MEDS: Levothyroxine Sodium 75 MCG TAB PO SCH (05:09)
[2023-10-18] MEDS ORDERED: Non-Formulary Item 1 EACH (Sertraline Hcl [Sertraline Hcl] 50 MG Tablet) PO SCH (09:00)
[2023-10-18] MEDS ORDERED: Levothyroxine Sodium 75 MCG TAB PO SCH (09:00)
[2023-10-18] MEDS: Sertraline 25 MG TAB PO SCH (09:17)
[2023-10-18] MEDS: FENTANYL 500 MCG/10 ML VIAL 500 MCG, Bupivacaine 0.75% 10 ML in Sodium Chloride 0.9% 80 ML EPIDURAL SCH (14:29)
[2023-10-19 05:34] LABS: #Basophils 0.1 thou/uL (0.0-0.2); #Monocytes 1.5 thou/uL (0.11-0.59); #Neutrophils 9.1 thou/uL (1.40-6.50); %Basophils 0.5 % (0.0-1.0); %Lymphocytes 14.3 % (21.0-51.0); %Monocytes 11.8 % (0.0-10.0); Hematocrit 33.8 % (36.0-47.0); Hemoglobin 11.3 g/dL (12.0-16.0); Mean Corpuscular HGB CONC 33.4 g/dL (32.0-36.0); Mean Corpuscular Volume 104.6 fl (78.0-98.0); Mean Platelet Volume 9.1 fL (7.4-10.4); Platelet Count 218 10x3/uL (130-400); RBC Distribution Width 14.3 % (11.5-14.5); Red Blood Cell (RBC) Count 3.23 mill/uL (4.20-5.40); White Blood Cell (WBC) Count 12.4 10x3/uL (4.8-10.8)
[2023-10-19 06:07] LABS: Anion Gap 11 mmol/L (10-20); BUN (Urea Nitrogen) 17 mg/dL (9.8-20.1); Calc. Creatinine Clearance 43 mL/min (70-130); Calcium 8.4 mg/dL (7.8-10.44); Carbon Dioxide 21 mmol/L (23-31); Chloride 110 mmol/L (98-107); Estimated GFR 53; Glucose 82 mg/dL (83-110); Potassium 4.2 mmol/L (3.5-5.1); Sodium 138 mmol/L (136-145)
[2023-10-20 05:41] LABS: #Basophils 0.1 thou/uL (0.0-0.2); #Monocytes 1.5 thou/uL (0.11-0.59); #Neutrophils 8.2 thou/uL (1.40-6.50); %Basophils 0.6 % (0.0-1.0); %Lymphocytes 17.8 % (21.0-51.0); %Monocytes 12.8 % (0.0-10.0); %Neutrophils 68.5 % (42.0-75.0); Hematocrit 33.9 % (36.0-47.0); Hemoglobin 11.2 g/dL (12.0-16.0); Mean Corpuscular Hemoglobin 34.1 pg (27.0-31.0); Mean Corpuscular Volume 103.4 fl (78.0-98.0); Mean Platelet Volume 9.3 fL (7.4-10.4); Platelet Count 226 10x3/uL (130-400); RBC Distribution Width 14.4 % (11.5-14.5); Red Blood Cell (RBC) Count 3.28 mill/uL (4.20-5.40); White Blood Cell (WBC) Count 11.9 10x3/uL (4.8-10.8)
[2023-10-20 06:36] LABS: Anion Gap 10 mmol/L (10-20); BUN (Urea Nitrogen) 15 mg/dL (9.8-20.1); Calc. Creatinine Clearance 42 mL/min (70-130); Calcium 8.8 mg/dL (7.8-10.44); Carbon Dioxide 26 mmol/L (23-31); Chloride 108 mmol/L (98-107); Estimated GFR 53; Glucose 73 mg/dL (83-110); Potassium 4.3 mmol/L (3.5-5.1); Sodium 140 mmol/L (136-145)
[2023-10-20] MEDS: traMADol HCl 50 MG TAB PO PRN (18:05)
[2023-10-21] MEDS: traMADol HCl 50 MG TAB PO PRN (01:33)
[2023-10-21 05:09] LABS: #Basophils 0.1 thou/uL (0.0-0.2); #Monocytes 1.1 thou/uL (0.11-0.59); #Neutrophils 6.4 thou/uL (1.40-6.50); %Basophils 0.6 % (0.0-1.0); %Lymphocytes 17.8 % (21.0-51.0); %Monocytes 11.9 % (0.0-10.0); %Neutrophils 69.3 % (42.0-75.0); Hematocrit 35.7 % (36.0-47.0); Hemoglobin 11.8 g/dL (12.0-16.0); Mean Corpuscular HGB CONC 33.1 g/dL (32.0-36.0); Mean Corpuscular Volume 102.9 fl (78.0-98.0); Mean Platelet Volume 9.9 fL (7.4-10.4); Platelet Count 291 10x3/uL (130-400); RBC Distribution Width 14.1 % (11.5-14.5); Red Blood Cell (RBC) Count 3.47 mill/uL (4.20-5.40); White Blood Cell (WBC) Count 9.3 10x3/uL (4.8-10.8)
[2023-10-21 05:30] LABS: Anion Gap 10 mmol/L (10-20); BUN (Urea Nitrogen) 17 mg/dL (9.8-20.1); Calc. Creatinine Clearance 42 mL/min (70-130); Calcium 8.9 mg/dL (7.8-10.44); Carbon Dioxide 27 mmol/L (23-31); Chloride 105 mmol/L (98-107); Estimated GFR 52; Glucose 78 mg/dL (83-110); Potassium 3.8 mmol/L (3.5-5.1); Sodium 138 mmol/L (136-145)
[2023-10-22 06:13] LABS: #Basophils 0.1 thou/uL (0.0-0.2); #Monocytes 1.1 thou/uL (0.11-0.59); #Neutrophils 5.4 thou/uL (1.40-6.50); %Lymphocytes 14.4 % (21.0-51.0); %Monocytes 14.6 % (0.0-10.0); %Neutrophils 69.6 % (42.0-75.0); Hematocrit 35.9 % (36.0-47.0); Hemoglobin 12.1 g/dL (12.0-16.0); Mean Corpuscular HGB CONC 33.7 g/dL (32.0-36.0); Mean Corpuscular Hemoglobin 34.4 pg (27.0-31.0); Mean Platelet Volume 9.3 fL (7.4-10.4); Platelet Count 294 10x3/uL (130-400); Red Blood Cell (RBC) Count 3.52 mill/uL (4.20-5.40); White Blood Cell (WBC) Count 7.8 10x3/uL (4.8-10.8)
[2023-10-22 06:45] LABS: Anion Gap 11 mmol/L (10-20); BUN (Urea Nitrogen) 17 mg/dL (9.8-20.1); Calc. Creatinine Clearance 37 mL/min (70-130); Calcium 9.3 mg/dL (7.8-10.44); Carbon Dioxide 29 mmol/L (23-31); Chloride 103 mmol/L (98-107); Estimated GFR 48; Glucose 128 mg/dL (83-110); Potassium 3.8 mmol/L (3.5-5.1); Sodium 139 mmol/L (136-145)
[2023-10-22 08:30] VITALS: TEMP 98.5
== END 2023-10-22 12:20 | disposition home or self-care (01) | DRG 661 ==
LOC: SURG A 10-17 08:47 → CCU 10-17 12:58 → IMCU/EMU 10-18 12:13
PROVIDERS: ADMIT Urology; ATTEND Urology
PROC: 0TB00ZZ Excision of Right Kidney, Open Approach (ICD-10-PCS; principal; 2023-10-17)
PROC: 3E033XZ Introduction of Vasopressor into Peripheral Vein, Percutaneous Approach (ICD-10-PCS; 2023-10-17)
PROC: 30233J1 Transfusion of Nonautologous Serum Albumin into Peripheral Vein, Percutaneous Approach (ICD-10-PCS; 2023-10-17)
DX: N28.1 Cyst of kidney, acquired (principal); J44.9 Chronic obstructive pulmonary disease, unspecified; G89.4 Chronic pain syndrome; N28.89 Other specified disorders of kidney and ureter; R91.1 Solitary pulmonary nodule; I10 Essential (primary) hypertension; F17.210 Nicotine dependence, cigarettes, uncomplicated; Z98.890 Other specified postprocedural states; Z98.51 Tubal ligation status; Z90.49 Acquired absence of other specified parts of digestive tract; Z98.891 History of uterine scar from previous surgery
CPT/HCPCS: 36415; 80048; 80053; 85025; 86850; 86900; 86901; 88307; C1713; C1776; C1889; J0690; J1100; J1200; J2001; J2371; J2704; J2795; J3010; J3490; J7050; P9045; P9047

== ENCOUNTER 2023-10-09 11:06 | Outpatient (CLI) | payer MEDICARE ==
[2023-10-09 12:47] LABS: Hematocrit 45.2 % (34.9-44.5); Hemoglobin 15.3 g/dL (12.0-15.5); Mean Corpuscular HGB CONC 33.8 g/dL (32.0-36.0); Mean Corpuscular Hemoglobin 33.8 pg (27.0-33.0); Mean Corpuscular Volume 99.8 fl (81.6-98.3); Platelet Count 339 10x3/uL (150-450); RBC Distribution Width 13.5 % (11.5-14.5); Red Blood Cell (RBC) Count 4.53 10x6/uL (3.90-5.03); White Blood Cell (WBC) Count 7.4 10x3/uL (3.5-10.5)
[2023-10-09 12:52] LABS: PTT 27.1 sec (22.0-33.0); Prothrombin Time 10.6 sec (9.5-12.1)
[2023-10-09 13:07] LABS: Anion Gap 14 mmol/L (10-20); BUN (Urea Nitrogen) 17 mg/dL (9.8-20.1); Calc. Creatinine Clearance 0 mL/min (70-130); Calcium 8.8 mg/dL (7.8-10.44); Carbon Dioxide 25 mmol/L (23-31); Chloride 105 mmol/L (98-107); Estimated GFR 44; Glucose 88 mg/dL (83-110); Potassium 4.5 mmol/L (3.5-5.1); Sodium 139 mmol/L (136-145)
[2023-10-09 13:19] LABS: Bilirubin Neg (Negative); Blood, Urine 25 (Negative); Clarity Clear (Clear); Glucose, Urine (Dipstick) Normal (Negative); Ketone, Urine Negative (Negative); Leukocyte 25 (Negative); Nitrite Negative (Negative); Protein, Urine (Dipstick) 15 mg/dl (Neg-Trace); Specific Gravity, Urine 1.015 (1.005-1.030); Urobilinogen Normal mg/dL (Less than 2)
[2023-10-09 15:26] LABS: RBC/HPF 0-3 HPF (0-3)
[2023-10-09 15:27] LABS: Bacteria/HPF 1+ HPF (None Seen); Squamous Epithelial 0-3 HPF (0-3)
== END 2023-10-09 11:07 | disposition home or self-care (01) ==
LOC: LABBT 11:06
PROVIDERS: ATTEND Urology
DX: Z01.818 Encounter for other preprocedural examination (principal); G43.109 Migraine with aura, not intractable, without status migrainosus; N28.1 Cyst of kidney, acquired; N18.31 Chronic kidney disease, stage 3a
CPT/HCPCS: 71046; 80048; 81001; 85027; 85610; 85730; 86850; 86900; 86901; 87086; 93005; 93010

== ENCOUNTER 2025-03-29 12:38 | Outpatient (CLI) | payer MEDICARE, OTHER | END 2025-03-29 12:39 | disposition home or self-care (01) | LOC: BICMAMMO 12:38 | PROVIDERS: ATTEND Family Medicine | DX: Z12.31 Encounter for screening mammogram for malignant neoplasm of breast (principal); Z12.2 Encounter for screening for malignant neoplasm of respiratory organs; Z78.0 Asymptomatic menopausal state; C64.1 Malignant neoplasm of right kidney, except renal pelvis; F17.210 Nicotine dependence, cigarettes, uncomplicated; M81.0 Age-related osteoporosis without current pathological fracture; M85.88 Other specified disorders of bone density and structure, other site; Z80.3 Family history of malignant neoplasm of breast; Z91.89 Other specified personal risk factors, not elsewhere classified | CPT/HCPCS: 71046; 71271; 77063; 77067; 77080 ==

== ENCOUNTER 2025-03-29 13:59 | Outpatient (CLI) | payer OTHER ==
[~2025-03-29 13:59] MED LIST: Iopamidol 370 76% 100 ML VIAL ONE
[2025-03-29 14:28] LABS: Estimated GFR - POC 36.0
== END 2025-03-29 14:00 | disposition home or self-care (01) ==
LOC: CT 13:59
PROVIDERS: ATTEND Family Medicine
DX: C64.1 Malignant neoplasm of right kidney, except renal pelvis (principal); K80.20 Calculus of gallbladder without cholecystitis without obstruction; E27.9 Disorder of adrenal gland, unspecified; N28.1 Cyst of kidney, acquired; L90.5 Scar conditions and fibrosis of skin; Z90.81 Acquired absence of spleen; N28.89 Other specified disorders of kidney and ureter; K31.89 Other diseases of stomach and duodenum; K57.30 Diverticulosis of large intestine without perforation or abscess without bleeding
CPT/HCPCS: 36415; 74178; 82565; Q9967